=== PATIENT | female | born 1975 | race American Indian/Alaskan Native ===

== ENCOUNTER 2017-04-11 09:08 | Emergency (ER) | payer BC, OTHER ==
--- NOTE | 2017-04-11 09:09 | EDM.PDOC ---
ED HPI GENERAL MEDICAL PROBLEM - General Chief Complaint: Chest Pain Stated Complaint: IN BY AMBULANCE Time Seen by Provider: 04/11/17 09:09 Source of Information: Reports: Patient, EMS, Old Records, RN, RN Notes Reviewed History Limitations: Reports: No Limitations - History of Present Illness INITIAL COMMENTS - FREE TEXT/NARRATIVE: Arrives from work by ambulance with report of onset pain early this morning at the midline lower chest & epigastric region. The pain was moderate, and went away. The pt then went to work, but once she got to work the pain returned and was worse. Pt states she felt like she couldn't breath, then got lightheaded and "blacked out". Her co-workers called 911. EMS arrived and gave Aspirin 81mg x4 tabs chewed, and Nitro. 0.4mg SL x2 without pain relief, then they gave Morphine 2mg IVP. On arrival to the ER pt c/o persistent chest pain (pt points and indicates pain located at epigastric abdomen). She denies radiating pain, current shortness of breath, palpitations, edema, cough, fever, chills, or vomiting. Admits to mild nausea. Pt later reports that she has been under "tremendous stress" at her job and with the holidays. Onset: Today Duration: Recurring Location: Reports: Chest, Abdomen Quality: Reports: Ache Severity: Severe Improves with: Reports: None Worsens with: Reports: None Context: Reports: Other (onset at rest) Associated Symptoms: Reports: No Other Symptoms Treatments SYSTEMS SUPPORT SPECIALIST: Reports: Aspirin, IV/IO, Nitroglycerin, Other Medication(s) ( Morphine) Mid-Sternal Chest Pain Score (Numeric/FACES): 8 - Related Data Allergies Allergy/AdvReac Type Severity Reaction Status Date / Time [facility] Allergy Cannot Verified 04/11/17 09:12 Remember Penicillins Allergy Cannot Verified 04/11/17 09:12 Remember Home Meds: Home Meds . [No Known Home Meds] 04/11/17 [History] Past Medical History - Past Health History Medical/Surgical History: Denies Medical/Surgical History [employer]PER[employer] History: Reports: Other OB/BYN History: Ceserean x4 Psychiatric History: Reports: Anxiety, Panic Attack Hematologic History: Reports: Anemia, Iron Deficiency - Past Surgical History GI Surgical History: Reports: Cholecystectomy Social & Family History - Family History Family Medical History: Noncontributory - Tobacco Use Smoking Status *Q: Former Smoker Years of Tobacco use: 0 Used Tobacco, but Quit: Yes Month Tobacco Last Used: 05/08/11 Second Hand Smoke Exposure: No - Alcohol Use Days Per Week of Alcohol Use: 0 - Recreational Drug Use Recreational Drug Use: No - Living Situation & Occupation Living situation: Reports: , with Family Occupation: Employed ED ROS GENERAL - Review of Systems Review Of Systems: ROS reveals no pertinent complaints other than HPI. ED EXAM, GENERAL - Physical Exam Exam: See Below Exam Limited By: No Limitations General Appearance: WD/WN, No Apparent Distress, Anxious Eye Exam: Bilateral Eye: EOMI, Normal Inspection Ears: Normal External Exam, Hearing Grossly Normal Nose: Normal Inspection, Normal Mucosa, No Blood Throat/Mouth: Normal Inspection, Normal Lips, Normal Teeth, Normal Gums, Normal Oropharynx, Normal Voice, No Airway Compromise Head: Atraumatic, Normocephalic Neck: Normal Inspection, Supple, Non-Tender, Full Range of Motion. No: Lymphadenopathy (L), Lymphadenopathy (R) Respiratory/Chest: No Respiratory Distress, Lungs Clear, Normal Breath Sounds, No Accessory Muscle Use, Chest Non-Tender, Other (hyperventilating) Cardiovascular: Normal Peripheral Pulses, Regular Rate, Rhythm, No Edema, No Gallop, No JVD, No Murmur, No Rub, Tachycardia GI/Abdominal: Soft, No Distention, No Abnormal Bruit, Tender (epigastric region) . No: Guarding, Rigid, Rebound (Female) Exam: Deferred Rectal (Female) Exam: Deferred Back Exam: Normal Inspection Extremities: Normal Inspection, Normal Range of Motion, Non-Tender, Normal Capillary Refill, No Pedal Edema Neurological: Alert, Oriented, CN II-XII Intact, Normal Cognition, Normal Gait, No Motor/Sensory Deficits Psychiatric: Anxious Skin Exam: Warm, Dry, Intact, Normal Color, No Rash EKG INTERPRETATION EKG Date: 04/11/17 Time: 09:15 Rhythm: Other (Sinus tach.) Rate (Beats/Min): 103 [place]: RAD-Right [place] Deviation P-Wave: Present QRS: Normal ST-T: Normal QT: Normal Comparison: No Change EKG Interpretation Comments: No acute ischemic changes. Course - Vital Signs Last Recorded V/S: Last Vital Signs Temp 37.2 C 04/11/17 09:14 Pulse 78 04/11/17 11:39 Resp 16 04/11/17 11:39 BP 109/68 04/11/17 11:39 Pulse Ox 96 04/11/17 11:39 - Orders/Labs/Meds Orders: Active Orders 24 hr Category Date Time Status EKG 12 Lead [EKG Documentation Completion] [RC] STAT Care 04/11/17 09:11 Active Peripheral IV Care [RC] . DIRECTED Care 04/11/17 09:11 Active Chest 1V Frontal [CR] Stat Exams 04/11/17 09:09 Ordered AMYLASE [CHEM] Stat Lab 04/11/17 09:09 Ordered CBC WITH AUTO DIFF [HEME] Stat Lab 04/11/17 09:09 Ordered COMPREHENSIVE METABOLIC PN,CMP [CHEM] Stat Lab 04/11/17 09:09 Ordered D Dimer [D-DIMER QUANTITATIVE] [COAG] Stat Lab 04/11/17 09:09 Ordered DRUG SCREEN URINE BIORAD [URCHEM] Stat Lab 04/11/17 09:09 Uncollected LORazepam [Ativan] Med 04/11/17 11:51 Once 1 mg IVPUSH ONETIME ONE Sodium Chloride 0.9% [Saline Flush] Med 04/11/17 09:10 Active 10 ml FLUSH ASDIRECTED PRN Peripheral IV Insertion Adult [OM.PC] Stat Oth 04/11/17 09:11 Ordered Medication Orders Sodium Chloride (Saline Flush) 10 ml FLUSH ASDIRECTED PRN PRN Reason: Keep Vein Open Last Admin: 04/11/17 09:26 Dose: 10 ml Labs: Laboratory Tests 04/11/17 04/11/17 04/11/17 Range/Units 09:22 09:22 09:22 WBC 5.4 (5.0-10.0) 10^3/uL RBC 4.41 (4.2-5.4) 10^6/uL Hgb 9.1 L (12.0-16.0) g/dL Hct 30.3 L (37.0-47.0) % MCV 68.7 L (80-100) fL MCH 20.6 L (27.0-34.0) pg MCHC 30.0 L (33.0-35.0) g/dL Plt Count 294 (150-450) 10^3/uL Neut % (Auto) 64.3 (42.2-75.2) % Lymph % (Auto) 26.2 (20.5-50.1) % [place] % (Auto) 9.3 H (2-8) % Eos % (Auto) 0.0 L (1.0-3.0) % Baso % (Auto) 0.2 (0.0-1.0) % D-Dimer, Quantitative < 100 (0-400) ng/mL Sodium 139 (135-145) mmol/L Potassium 3.3 L (3.6-5.0) mmol/L Chloride 102 (101-111) mmol/L Carbon Dioxide 22.0 (21.0-31.0) mmol/L Anion Gap 18.3 BUN 11 (7-18) mg/dL Creatinine 0.7 (0.6-1.3) mg/dL Est Cr Clr Drug Dosing 94.21 mL/min Estimated GFR (MDRD) > 60 BUN/Creatinine Ratio 15.71 Glucose 99 (74-105) mg/dL Calcium 8.8 (8.4-10.2) mg/dl Total Bilirubin 0.8 (0.2-1.0) mg/dL AST 21 (10-42) IU/L ALT 17 (10-60) IU/L Alkaline Phosphatase 83 (42-121) IU/L Troponin I < 0.02 (0.00-0.02) ng/ml Total Protein 7.5 (6.7-8.2) g/dl Albumin 3.8 (3.2-5.5) g/dl Globulin 3.7 Albumin/Globulin Ratio 1.03 Amylase 29 (28-100) U/L Lipase 24 (22-51) U/L Urine Color (YELLOW) Urine Appearance (CLEAR) Urine pH (5.0-9.0) Ur Specific [place] (1.005-1.030) Urine Protein (NEGATIVE) Urine Glucose (UA) (NEGATIVE) Urine Ketones (NEGATIVE) Urine Occult Blood (NEGATIVE) Urine Nitrite (NEGATIVE) Urine Bilirubin (NEGATIVE) Urine Urobilinogen (0.2-1.0) mg/dL Ur Leukocyte Esterase (NEGATIVE) Urine RBC /HPF Urine WBC (0-5/HPF) /HPF Ur Epithelial Cells /HPF Amorphous Sediment (0/HPF) /HPF Urine Bacteria (0-FEW/HPF) /HPF Urine Mucus /LPF Urine HCG, Qual Urine Opiates Screen (NEGATIVE) Ur Oxycodone Screen (NEGATIVE) Urine Methadone Screen (NEGATIVE) Ur Barbiturates Screen (NEGATIVE) U Tricyclic Antidepress (NEGATIVE) Ur Phencyclidine Scrn (NEGATIVE) Ur Amphetamine Screen (NEGATIVE) U Methamphetamines Scrn (NEGATIVE) Urine MDMA Screen (NEGATIVE) U Benzodiazepines Scrn (NEGATIVE) Urine Cocaine Screen (NEGATIVE) U Marijuana (THC) Screen (NEGATIVE) 04/11/17 04/11/17 04/11/17 Range/Units 10:30 10:30 10:30 WBC (5.0-10.0) 10^3/uL RBC (4.2-5.4) 10^6/uL Hgb (12.0-16.0) g/dL Hct (37.0-47.0) % MCV (80-100) fL MCH (27.0-34.0) pg MCHC (33.0-35.0) g/dL Plt Count (150-450) 10^3/uL Neut % (Auto) (42.2-75.2) % Lymph % (Auto) (20.5-50.1) % [place] % (Auto) (2-8) % Eos % (Auto) (1.0-3.0) % Baso % (Auto) (0.0-1.0) % D-Dimer, Quantitative (0-400) ng/mL Sodium (135-145) mmol/L Potassium (3.6-5.0) mmol/L Chloride (101-111) mmol/L Carbon Dioxide (21.0-31.0) mmol/L Anion Gap BUN (7-18) mg/dL Creatinine (0.6-1.3) mg/dL Est Cr Clr Drug Dosing mL/min Estimated GFR (MDRD) BUN/Creatinine Ratio Glucose (74-105) mg/dL Calcium (8.4-10.2) mg/dl Total Bilirubin (0.2-1.0) mg/dL AST (10-42) IU/L ALT (10-60) IU/L Alkaline Phosphatase (42-121) IU/L Troponin I (0.00-0.02) ng/ml Total Protein (6.7-8.2) g/dl Albumin (3.2-5.5) g/dl Globulin Albumin/Globulin Ratio Amylase (28-100) U/L Lipase (22-51) U/L Urine Color Yellow (YELLOW) Urine Appearance Clear (CLEAR) Urine pH 5.5 (5.0-9.0) Ur Specific [place] >= 1.030 (1.005-1.030) Urine Protein 100 H (NEGATIVE) Urine Glucose (UA) Negative (NEGATIVE) Urine Ketones 15 H (NEGATIVE) Urine Occult Blood Trace-intact H (NEGATIVE) Urine Nitrite Negative (NEGATIVE) Urine Bilirubin Moderate H (NEGATIVE) Urine Urobilinogen 2.0 H (0.2-1.0) mg/dL Ur Leukocyte Esterase Trace H (NEGATIVE) Urine RBC 0-5 /HPF Urine WBC >100 H (0-5/HPF) /HPF Ur Epithelial Cells Many H /HPF Amorphous Sediment Few (0/HPF) /HPF Urine Bacteria Many H (0-FEW/HPF) /HPF Urine Mucus Many H /LPF Urine HCG, Qual Negative Urine Opiates Screen Positive H (NEGATIVE) Ur Oxycodone Screen Negative (NEGATIVE) Urine Methadone Screen Negative (NEGATIVE) Ur Barbiturates Screen Negative (NEGATIVE) U Tricyclic Antidepress Negative (NEGATIVE) Ur Phencyclidine Scrn Negative (NEGATIVE) Ur Amphetamine Screen Negative (NEGATIVE) U Methamphetamines Scrn Negative (NEGATIVE) Urine MDMA Screen Negative (NEGATIVE) U Benzodiazepines Scrn Negative (NEGATIVE) Urine Cocaine Screen Negative (NEGATIVE) U Marijuana (THC) Screen Negative (NEGATIVE) Meds: Medications Generic Name Dose Route Start Last Admin Trade Name Freq PRN Reason Stop Dose Admin Sodium Chloride 10 ml 04/11/17 09:10 04/11/17 09:26 Saline Flush FLUSH 10 ml ASDIRECTED PRN Administration Keep Vein Open Discontinued Medications Generic Name Dose Route Start Last Admin Trade Name Freq PRN Reason Stop Dose Admin Al Hydroxide/Mg Hydroxide 30 ml 04/11/17 09:15 04/11/17 09:31 Gi Cocktail PO 04/11/17 09:16 30 ml ONETIME ONE Administration Lactated Ringer's 1,000 mls @ 999 mls/hr 04/11/17 09:26 04/11/17 09:37 Ringers, Lactated IV 04/11/17 10:26 999 mls/hr .BOLUS ONE Administration Lorazepam 1 mg 04/11/17 09:15 12/05/17 09:26 Ativan IVPUSH 12/05/17 09:16 1 mg ONETIME ONE Administration Pantoprazole Sodium 40 mg 04/11/17 09:15 04/11/17 09:27 Protonix Iv IVPUSH 04/11/17 09:16 40 mg ONETIME ONE Administration - Radiology Interpretation Free Text/Narrative:: CXR: no acute process, see Rad. report. - Re-Assessments/Exams Free Text/Narrative Re-Assessment/Exam: 04/11/17 11:18 I explained the exam findings, results of all diagnostic tests, chest xray report, working diagnosis, and any potential or additionally considered diagnoses, treatment/disposition plan, self/home care instructions, rational for the diagnosis/treatment plan/disposition plan, anticipated course of illness , and follow up instructions to the pt. The pt acknowledges understanding of the above explanation(s), and of the signs and symptoms which should prompt the return of the pt to the ER should those or any other concerning symptoms develop. Departure - Departure Time of Disposition: 11:19 Disposition: Home, Self-Care 01 Condition: Fair Clinical Impression: Atypical chest pain, Stress, Esophageal spasm, Anxiety as acute reaction to gross stress, Bacterial vaginosis Syncope Qualifiers: Syncope type: unspecified Qualified Code(s): R55 - Syncope and collapse Instructions: Nonspecific Chest Pain, [id number], Esophageal Spasm, Panic Attacks, Gfwy-[id number]-Cnah, Bacterial Vaginosis, [id number]-pr-[id number] Forms: ED Department Discharge Additional Instructions: Rx: Flagyl (Metronidazole) 500mg Rx: Omeprazole 20mg Rx: Clonazepam 1mg *Do not drive while under the influence of this medication. Rest and avoid stress. Avoid spicy food, high fat and fried foods, alcohol, and caffeine. Follow up with your primary doctor this week for recheck. Discuss your stress and anxiety with your doctor also. - My Orders Last 24 Hours: My Active Orders 04/11/17 09:09 Chest 1V Frontal [CR] Stat AMYLASE [CHEM] Stat CBC WITH AUTO DIFF [HEME] Stat COMPREHENSIVE METABOLIC PN,CMP [CHEM] Stat D Dimer [D-DIMER QUANTITATIVE] [COAG] Stat DRUG SCREEN URINE BIORAD [URCHEM] Stat 04/11/17 09:10 Sodium Chloride 0.9% [Saline Flush] 10 ml FLUSH ASDIRECTED PRN 04/11/17 09:11 EKG 12 Lead [EKG Documentation Completion] [RC] STAT Peripheral IV Care [RC] . DIRECTED Peripheral IV Insertion Adult [OM.PC] Stat 04/11/17 11:51 LORazepam [Ativan] 1 mg IVPUSH ONETIME ONE - Assessment/Plan Last 24 Hours: My Active Orders 04/11/17 09:09 Chest 1V Frontal [CR] Stat AMYLASE [CHEM] Stat CBC WITH AUTO DIFF [HEME] Stat COMPREHENSIVE METABOLIC PN,CMP [CHEM] Stat D Dimer [D-DIMER QUANTITATIVE] [COAG] Stat DRUG SCREEN URINE BIORAD [URCHEM] Stat 04/11/17 09:10 Sodium Chloride 0.9% [Saline Flush] 10 ml FLUSH ASDIRECTED PRN 04/11/17 09:11 EKG 12 Lead [EKG Documentation Completion] [RC] STAT Peripheral IV Care [RC] . DIRECTED Peripheral IV Insertion Adult [OM.PC] Stat 04/11/17 11:51 LORazepam [Ativan] 1 mg IVPUSH ONETIME ONE
[2017-04-11] MEDS ORDERED: Sodium Chloride 0.9% 10 ML Syringe FLUSH PRN (09:10)
[2017-04-11] MEDS ORDERED: LORazepam 2 MG/ML Syringe IVPUSH ONE ×2 (09:15→11:51)
[2017-04-11] MEDS ORDERED: Pantoprazole 40 MG Vial IVPUSH ONE (09:15)
[2017-04-11] MEDS ORDERED: GI Cocktail Oral Solution 30 ML PO ONE (09:15)
[2017-04-11] MEDS ORDERED: Lactated Ringers 1,000 ML IV ONE (09:26)
[2017-04-11 09:49] LABS: CHLORIDE,CL 102 mmol/L (101-111); SODIUM,NA 139 mmol/L (135-145)
--- NOTE | 2017-04-11 10:03 | CR ---
Clinical history: 41-year-old female chest pain. Interpretation: Negative exam. Upright AP portable chest film with external therapy director leads is unremarkable. Normal cardiac silhouette. No new cephalization of vascular flow, signs of alveolar edema or dependen t pleural effusion when compared to 08 Sep 2015 exam. No new lung mass, hilar lymphadenopathy or focal lobar pneumonia. No atelectasis/collapse. No pneumothorax.
[2017-04-11 11:40] VITALS: BP 109/68
--- NOTE | 2017-04-17 07:05 | EKG ---
04/11/2017- KRISTINA MACEDO - [place] 12-lead EKG shows normal sinus rhythm with sinus tachycardia. Heart rate of 103, p.r.n. interval of 156 with mild right axis deviation. No significant ST elevation or ST depression noted on this 12-lead EKG. [facility] /[id number]
== END 2017-04-11 12:04 | disposition home or self-care (01) ==
LOC: DL.ED 09:08
DX: K22.4 Dyskinesia of esophagus (principal); R55 Syncope and collapse; F41.1 Generalized anxiety disorder; F43.9 Reaction to severe stress, unspecified; N76.0 Acute vaginitis; Z88.1 Allergy status to other antibiotic agents; Z88.0 Allergy status to penicillin; Z87.891 Personal history of nicotine dependence
CPT/HCPCS: 36415; 71010; 80053; 80305; 81001; 81025; 82150; 83690; 84484; 85025; 85379; 93005; 96361; 96374; 96375; 99285; A9270; C9113; J2060; J7050; J7120

== ENCOUNTER 2017-04-11 14:32 | Observation (INO) | payer OTHER ==
--- NOTE | 2017-04-11 14:38 | EDM.PDOC ---
ED HPI GENERAL MEDICAL PROBLEM - General Chief Complaint: Gastrointestinal Problem Stated Complaint: VOMITTING Time Seen by Provider: 04/11/17 14:38 Source of Information: Reports: Patient, Family, Old Records, RN, RN Notes Reviewed History Limitations: Reports: No Limitations - History of Present Illness INITIAL COMMENTS - FREE TEXT/NARRATIVE: Arrives from home by POV with c/o vomiting and epigastric pain. Pt was seen here this morning for chest and epigastric pain and a syncopal episode, but no N /V, and had a negative cardiac evaluation, and no significant lab abnormalities. She did admit to being under a lot of stress recently. She denies fever, chills, diarrhea, constipation, or urinary symptoms. Onset: Today Location: Reports: Abdomen Quality: Reports: Ache Severity: Severe Improves with: Reports: None Worsens with: Reports: None Associated Symptoms: Reports: No Other Symptoms Epigastric Pain Score (Numeric/FACES): 3 - Related Data Allergies Allergy/AdvReac Type Severity Reaction Status Date / Time cefaclor [From Ceclor] Allergy Cannot Verified 04/11/17 14:58 Remember Penicillins Allergy Cannot Verified 04/11/17 14:58 Remember Home Meds: Home Meds . 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/BYN History: Ceserean x4 Psychiatric History: Reports: Anxiety, Panic Attack Hematologic History: Reports: Anemia, Iron Deficiency - Past Surgical History GI Surgical History: Reports: Cholecystectomy Social & Family History - Family History Family Medical History: Noncontributory - Tobacco Use Smoking Status *Q: Former Smoker Years of Tobacco use: 0 Used Tobacco, but Quit: Yes Month Tobacco Last Used: 05/08/11 Second Hand Smoke Exposure: No - Caffeine Use Caffeine Use: Reports: None - Alcohol Use Days Per Week of Alcohol Use: 0 - Recreational Drug Use Recreational Drug Use: No - Living Situation & Occupation Living situation: Reports: , with Family Occupation: Employed ED ROS GENERAL - Review of Systems Review Of Systems: ROS reveals no pertinent complaints other than HPI. ED EXAM, GI/ABD - Physical Exam Exam: See Below Exam Limited By: No Limitations General Appearance: Alert, WD/WN, No Apparent Distress, Anxious, Other (drowsy) Eyes: Bilateral: Normal Appearance Nose: Normal Inspection Throat/Mouth: Normal Inspection, Normal Lips, Normal Teeth, Normal Gums, Normal Oropharynx, Normal Voice, No Airway Compromise Head: Atraumatic, Normocephalic Neck: Normal Inspection Respiratory/Chest: No Respiratory Distress, Lungs Clear, Normal Breath Sounds, No Accessory Muscle Use, Chest Non-Tender Cardiovascular: Regular Rate, Rhythm, No Edema GI/Abdominal Exam: Soft, No Distention, No Abnormal Bruit, Tender (epigastric region, and less so at the RUQ), Other (slightly hyperactive bowel sounds). No : Guarding, Rigid, Rebound (Female) Exam: Deferred Rectal (Female) Exam: Deferred Back Exam: Normal Inspection Extremities: Normal Inspection Neurological: Alert, No Motor/Sensory Deficits, Other (drowsy (had ativan earlier)) Psychiatric: Anxious, Flat Affect Skin Exam: Warm, Dry, Intact, Normal Color, No Rash Course - Vital Signs Last Recorded V/S: Last Vital Signs Temp 36.6 C 04/11/17 14:59 Pulse 56 L 04/11/17 16:17 Resp 16 04/11/17 16:17 BP 91/54 L 04/11/17 16:17 Pulse Ox 95 04/11/17 16:17 - Orders/Labs/Meds Orders: Active Orders 24 hr Category Date Time Status Peripheral IV Care [RC] . DIRECTED Care 04/11/17 15:03 Active Potassium Chloride [KCl 10 MEQ in Water 100 ML] 10 meq Med 04/11/17 16:07 Active Premix Bag 1 bag IV ONETIME Sodium Chloride 0.9% [Saline Flush] Med 04/11/17 15:02 Active 10 ml FLUSH ASDIRECTED PRN Peripheral IV Insertion Adult [OM.PC] Stat Oth 04/11/17 15:02 Ordered Medication Orders Potassium Chloride 10 meq/ (Premix) 100 mls @ 100 mls/hr IV ONETIME ONE Stop: 04/11/17 17:06 Last Admin: 04/11/17 16:18 Dose: 100 mls/hr Sodium Chloride (Saline Flush) 10 ml FLUSH ASDIRECTED PRN PRN Reason: Keep Vein Open Last Admin: 04/11/17 15:21 Dose: 10 ml Labs: Laboratory Tests 04/11/17 04/11/17 Range/Units 15:20 15:20 WBC 6.1 (5.0-10.0) 10^3/uL RBC 4.11 L (4.2-5.4) 10^6/uL Hgb 8.5 L (12.0-16.0) g/dL Hct 28.9 L (37.0-47.0) % MCV 70.3 L (80-100) fL MCH 20.7 L (27.0-34.0) pg MCHC 29.4 L (33.0-35.0) g/dL Plt Count 187 D (150-450) 10^3/uL Neut % (Auto) 75.0 (42.2-75.2) % Lymph % (Auto) 15.9 L (20.5-50.1) % [place] % (Auto) 8.9 H (2-8) % Eos % (Auto) 0.0 L (1.0-3.0) % Baso % (Auto) 0.2 (0.0-1.0) % Sodium 141 (135-145) mmol/L Potassium 3.0 L (3.6-5.0) mmol/L Chloride 106 (101-111) mmol/L Carbon Dioxide 23.0 (21.0-31.0) mmol/L Anion Gap 15.0 BUN 11 (7-18) mg/dL Creatinine 0.6 (0.6-1.3) mg/dL Est Cr Clr Drug Dosing 105.47 mL/min Estimated GFR (MDRD) > 60 BUN/Creatinine Ratio 18.33 Glucose 101 (74-105) mg/dL Calcium 8.4 (8.4-10.2) mg/dl Total Bilirubin 0.6 (0.2-1.0) mg/dL AST 21 (10-42) IU/L ALT 17 (10-60) IU/L Alkaline Phosphatase 76 (42-121) IU/L Total Protein 6.6 L (6.7-8.2) g/dl Albumin 3.5 (3.2-5.5) g/dl Globulin 3.1 Albumin/Globulin Ratio 1.13 Amylase 26 L (28-100) U/L Lipase 23 (22-51) U/L Meds: Medications Generic Name Dose Route Start Last Admin Trade Name Freq PRN Reason Stop Dose Admin Potassium Chloride 10 meq/ 100 mls @ 100 mls/hr 04/11/17 16:07 04/11/17 16:18 Premix IV 04/11/17 17:06 100 mls/hr ONETIME ONE Administration Sodium Chloride 10 ml 04/11/17 15:02 04/11/17 15:21 Saline Flush FLUSH 10 ml ASDIRECTED PRN Administration Keep Vein Open Discontinued Medications Generic Name Dose Route Start Last Admin Trade Name Freq PRN Reason Stop Dose Admin Lactated Ringer's 1,000 mls @ 999 mls/hr 04/11/17 15:03 04/11/17 15:21 Ringers, Lactated IV 04/11/17 16:03 999 mls/hr .BOLUS ONE Administration Lidocaine HCl 1 ml 04/11/17 16:08 04/11/17 16:19 Xylocaine-Mpf 1% INJECT 04/11/17 16:09 1 ml ONETIME ONE Administration Ondansetron HCl 4 mg 04/11/17 15:03 04/11/17 15:21 Zofran IV 04/11/17 15:04 4 mg ONETIME ONE Administration Departure - Departure Time of Disposition: 16:38 (admit to Dr. Peck) Disposition: Refer to Observation Condition: Fair Clinical Impression: Vomiting, Epigastric abdominal pain, Anxiety as acute reaction to gross stress , Hypokalemia, gastrointestinal losses, Chronic anemia Syncope Qualifiers: Syncope type: unspecified Qualified Code(s): R55 - Syncope and collapse - Discharge Information Forms: ED Department Discharge - My Orders Last 24 Hours: My Active Orders 04/11/17 15:02 Sodium Chloride 0.9% [Saline Flush] 10 ml FLUSH ASDIRECTED PRN Peripheral IV Insertion Adult [OM.PC] Stat 04/11/17 15:03 Peripheral IV Care [RC] . DIRECTED 04/11/17 16:07 Potassium Chloride [KCl 10 MEQ in Water 100 ML] 10 meq Premix Bag 1 bag IV ONETIME - Assessment/Plan Last 24 Hours: My Active Orders 04/11/17 15:02 Sodium Chloride 0.9% [Saline Flush] 10 ml FLUSH ASDIRECTED PRN Peripheral IV Insertion Adult [OM.PC] Stat 04/11/17 15:03 Peripheral IV Care [RC] . DIRECTED 04/11/17 16:07 Potassium Chloride [KCl 10 MEQ in Water 100 ML] 10 meq Premix Bag 1 bag IV ONETIME
[2017-04-11] MEDS ORDERED: Sodium Chloride 0.9% 10 ML Syringe FLUSH PRN (15:02)
[2017-04-11] MEDS ORDERED: Ondansetron 4 MG/2 ML SDV IV ONE (15:03)
[2017-04-11] MEDS ORDERED: Lactated Ringers 1,000 ML IV ONE (15:03)
[2017-04-11 16:00] LABS: CHLORIDE,CL 106 mmol/L (101-111); SODIUM,NA 141 mmol/L (135-145)
[2017-04-11] MEDS ORDERED: Potassium Chloride 10 MEQ in Premix Bag 1 BAG IV ONE (16:07)
[2017-04-11] MEDS ORDERED: Lidocaine 1% 30 ML SDV INJECT ONE (16:08)
[2017-04-11] MEDS ORDERED: Calcium Carbonate 500 MG Tab.Chew PO PRN (18:11)
[2017-04-11] MEDS ORDERED: Temazepam 15 MG Cap PO PRN (18:13)
[2017-04-11] MEDS ORDERED: Acetaminophen 325 MG Tab PO PRN (18:13)
[2017-04-11] MEDS ORDERED: Ondansetron 4 MG Tab.DIS PO PRN (18:13)
--- NOTE | 2017-04-11 18:25 | PCM.HP ---
H&P History of Present Illness - General Date of Service: 04/11/17 Admit Problem/Dx: Admission Diagnosis/Problem Admission Diagnosis/Problem Chest pain Source of Information: Patient - History of Present Illness Initial Comments - Free Text/Narative: The patient is a 41-year-old lady with a history of anxiety. History of episodes of associated reflux disease with heartburn and has to take Tums 2-3 times a week. She is under a lot of stress at work and at home currently. This morning the patient felt anxiety followed by chest heaviness. Subsequently she was noted to have a syncopal episode that lasted about 1 minute. 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 She did not respond to talking to her for about a minute but she kept on breathing. She was brought in today emergency room where cardiac evaluation was done and the patient was discharged home. After discharge she felt nauseous and was vomiting and came back to the emergency room again. She feels that she cannot remember part of the day. She is not nauseous now. She has no chest pain. Epigastric Pain Score (Numeric/FACES): 3 - Related Data Allergies/Adverse Reactions: Allergies Allergy/AdvReac Type Severity Reaction Status Date / Time cefaclor [From [facility]] Allergy Cannot Verified 04/11/17 14:58 Remember Penicillins Allergy Cannot Verified 04/11/17 14:58 Remember Home Medications: Home Meds . [No Known Home Meds] 04/11/17 [History] Past Medical History - Past Health History Medical/Surgical History: Denies Medical/Surgical History Genitourinary History: Reports: None [employer]ER History: Reports: Other OB/BYN History: Ceserean x4 Psychiatric History: Reports: Anxiety, Panic Attack Hematologic History: Reports: Anemia, Iron Deficiency - Past Surgical History GI Surgical History: Reports: Cholecystectomy Social & Family History - Family History Family Medical History: Noncontributory - Tobacco Use Smoking Status *Q: Former Smoker Years of Tobacco use: 0 Used Tobacco, but Quit: Yes Month Tobacco Last Used: 05/08/11 Second Hand Smoke Exposure: No - Caffeine Use Caffeine Use: Reports: None - Alcohol Use Days Per Week of Alcohol Use: 0 - Recreational Drug Use Recreational Drug Use: No - Living Situation & Occupation Living situation: Reports: , with Family Occupation: Employed H&P Review of Systems - Review of Systems: Review Of Systems: See Below General: Reports: Malaise. Denies: Fever Pulmonary: Denies: Shortness of Breath Cardiovascular: Reports: Chest Pain, Syncope. Denies: Edema Genitourinary: Denies: Dysuria Psychiatric: Reports: Anxiety Neurological: Reports: Syncope. Denies: Seizure Exam - Exam Exam: See Below - Vital Signs Vital Signs: Last Vital Signs Temp 37.0 C 04/11/17 17:22 Pulse 77 04/11/17 17:22 Resp 20 04/11/17 17:22 BP 108/65 04/11/17 17:22 Pulse Ox 100 04/11/17 17:22 Weight: 78.199 kg - Exam General: Alert, Oriented Neck: Supple, Trachea Midline Lungs: Clear to Auscultation, Normal Respiratory Effort Cardiovascular: Regular Rate, Regular Rhythm, Other (Reproducible sternal chest pain with pressure) GI/Abdominal Exam: Normal Bowel Sounds, Soft, Non-Tender. No: Distended Extremities: No Pedal Edema Neuro Extensive - Mental Status: Alert, Oriented x3, Normal Mood/Affect - Patient Data Result Diagrams: 04/11/17 15:20 04/11/17 15:20 *Q Meaningful Use (ADM) - VTE *Q VTE Criteria *Q: - Stroke *Q Stroke Criteria *Q: - AMI *Q AMI Criteria *Q: - Problem List (1) Anxiety as acute reaction to gross stress SNOMED Code(s): 00317060 ICD Code: F41.1 - GENERALIZED ANXIETY DISORDER; F43.0 - ACUTE STRESS REACTION Status: Acute Current Visit: Yes (2) Chronic anemia SNOMED Code(s): 057482402 ICD Code: D64.9 - ANEMIA, UNSPECIFIED Status: Acute Current Visit: Yes (3) Syncope SNOMED Code(s): 890035962 ICD Code: R55 - SYNCOPE AND COLLAPSE Status: Acute Current Visit: Yes Qualifiers: Syncope type: unspecified Qualified Code(s): R55 - Syncope and collapse (4) Atypical chest pain SNOMED Code(s): 270816752 ICD Code: R07.89 - OTHER CHEST PAIN Status: Acute Current Visit: No Problem List Initiated/Reviewed/Updated: Yes Orders Last 24hrs: Active Orders 24 hr Category Date Time Status Patient Status [ADT] Routine ADT 04/11/17 18:14 Ordered Antiembolic Devices [RC] PER UNIT ROUTINE Care 04/11/17 18:16 Ordered Oxygen Therapy [RC] PRN Care 04/11/17 18:14 Ordered Telemetry Monitoring [Cardiac Monitoring] [RC] . Care 04/11/17 18:12 Ordered DIRECTED Up With Assistance [RC] ASDIRECTED Care 04/11/17 18:13 Ordered VTE/DVT Education [RC] PER UNIT ROUTINE Care 04/11/17 18:14 Ordered Vital Signs [RC] Q4H Care 04/11/17 18:14 Ordered Regular Diet [DIET] Diet 04/11/17 Breakfast Ordered BASIC METABOLIC PANEL,BMP [CHEM] AM Lab 04/12/17 05:15 Ordered CBC WITH AUTO DIFF [HEME] AM Lab 04/12/17 05:15 Ordered TROPONIN I [CHEM] AM Lab 04/12/17 05:11 Ordered Acetaminophen [Tylenol] Med 04/11/17 18:13 Ordered 650 mg PO Q4H PRN Calcium Carbonate [Tums] Med 04/11/17 18:11 Ordered 500 mg PO Q2H PRN Heparin Sodium Med 04/11/17 22:00 Ordered 5,000 units SUBCUT Q8HR LORazepam [Ativan] Med 04/11/17 18:13 Ordered 1 mg PO Q6H PRN Ondansetron [Zofran ODT] Med 04/11/17 18:13 Ordered 4 mg PO Q6H PRN Ondansetron [Zofran] Med 04/11/17 18:13 Ordered 4 mg IVPUSH Q6H PRN Pantoprazole [ProTONIX] Med 04/11/17 21:00 Ordered 40 mg PO BEDTIME Potassium Chloride [Klor-Con 10] Med 04/11/17 19:00 Once 40 meq PO ONETIME ONE Temazepam [Restoril] Med 04/11/17 18:13 Ordered 15 mg PO BEDTIME PRN Antiembolic Hose [OM.PC] Per Unit Routine Oth 04/11/17 18:15 Ordered Resuscitation Status Routine Resus Stat 04/11/17 18:13 Ordered Medication Orders Acetaminophen (Tylenol) 650 mg PO Q4H PRN PRN Reason: Pain (Mild 1-3)/fever Calcium Carbonate/Glycine (Tums) 500 mg PO Q2H PRN PRN Reason: Heartburn Heparin Sodium (Porcine) (Heparin Sodium) 5,000 units SUBCUT Q8HR JUDI Lorazepam (Ativan) 1 mg PO Q6H PRN PRN Reason: Anxiety Ondansetron HCl (Zofran Odt) 4 mg PO Q6H PRN PRN Reason: nausea, able to take PO Ondansetron HCl (Zofran) 4 mg IVPUSH Q6H PRN PRN Reason: Nausea/Vomiting Pantoprazole Sodium (Protonix) 40 mg PO BEDTIME JUDI Potassium Chloride (Klor-Con 10) 40 meq PO ONETIME ONE Stop: 04/11/17 19:01 Sodium Chloride (Saline Flush) 10 ml FLUSH ASDIRECTED PRN PRN Reason: Keep Vein Open Last Admin: 04/11/17 15:21 Dose: 10 ml Temazepam (Restoril) 15 mg PO BEDTIME PRN PRN Reason: Sleep Assessment/Plan Comment:: The patient is a 41-year-old with a history of anemia. She has no significant cardiac risk factors but has significant stress lately. She presented with chest discomfort and syncopal episode. Chest discomfort and syncope likely due to anxiety, hyperventilation. Monitor the patient on telemetry, repeat troponin in the morning There might be a reflux component. Started the patient on Protonix Use Ativan as needed for anxiety Hypokalemia We'll replace that and recheck in the morning Anemia Will need outpatient follow-up
[2017-04-11] MEDS ORDERED: Potassium Chloride 10 MEQ Tab.ER PO ONE (19:00)
[2017-04-11] MEDS ORDERED: Pantoprazole 40 MG Tab.CR PO SCH (21:00)
[2017-04-11] MEDS: Heparin Sodium 5,000 Units/ML Vial SUBCUT SCH (21:46)
[2017-04-11] MEDS: LORazepam 1 MG Tab PO PRN (21:57)
[2017-04-12] MEDS: Heparin Sodium 5,000 Units/ML Vial SUBCUT SCH ×3 (06:44→21:33)
[2017-04-12 06:48] LABS: CHLORIDE,CL 109 mmol/L (101-111); SODIUM,NA 140 mmol/L (135-145)
[2017-04-12] MEDS: LORazepam 1 MG Tab PO PRN (07:26)
[2017-04-12] MEDS ORDERED: Barium Sulfate w/v 1.3% Oral Susp 450 ML Bottle PO ONE (10:16)
[2017-04-12] MEDS ORDERED: Iopamidol 755 Mg/ML 100 ML Bottle IVPUSH ONE (10:17)
[2017-04-12] MEDS: Acetaminophen/HYDROcodone 325-5 MG Tab PO PRN ×2 (10:34→21:32)
[2017-04-12] MEDS ORDERED: LORazepam 2 MG/ML Syringe IVPUSH ONE (11:30)
[2017-04-12] MEDS ORDERED: Barium Sulfate w/v 2.1% Oral Susp 450 ML Bottle PO ONE (11:56)
[2017-04-12] MEDS: Ondansetron 4 MG/2 ML SDV IVPUSH PRN ×2 (12:05→17:54)
--- NOTE | 2017-04-12 12:05 | PCM.PN ---
- General Info Date of Service: 04/12/17 Admission Dx/Problem (Free Text): Admission Diagnosis/Problem Admission Diagnosis/Problem Chest pain Subjective Update: The patient did well overnight. But this morning again feeling chest heaviness. It does change with different positions. Associated with anxiety. She is feeling short of breath. Functional Status: Denies: Pain Controlled - Review of Systems General: Denies: Fever, Weakness Pulmonary: Reports: Shortness of Breath, Pleuritic Chest Pain. Denies: Cough Cardiovascular: Reports: Chest Pain. Denies: Edema Gastrointestinal: Reports: Abdominal Pain (Upper abdomen) Neurological: Denies: Confusion Psychiatric: Reports: Anxiety. Denies: Depression - Patient Data Vitals - Most Recent: Last Vital Signs Temp 37.0 C 04/12/17 11:00 Pulse 72 04/12/17 11:00 Resp 22 H 04/12/17 11:00 BP 117/70 04/12/17 11:00 Pulse Ox 100 04/12/17 11:00 Weight - Most Recent: 78.199 kg I&O - Last 24 Hours: Intake & Output 04/11/17 04/12/17 04/12/17 22:59 06:59 14:59 Intake Total 100 Output Total 700 Balance -600 Lab Results Last 24 Hours: Laboratory Results - last 24 hr 04/12/17 04/12/17 Range/Units 05:55 05:55 WBC 4.0 L (5.0-10.0) 10^3/uL RBC 4.07 L (4.2-5.4) 10^6/uL Hgb 8.2 L (12.0-16.0) g/dL Hct 29.0 L (37.0-47.0) % MCV 71.3 L (80-100) fL MCH 20.1 L (27.0-34.0) pg MCHC 28.3 L (33.0-35.0) g/dL Plt Count 242 (150-450) 10^3/uL Neut % (Auto) 50.5 (42.2-75.2) % Lymph % (Auto) 40.1 (20.5-50.1) % [place] % (Auto) 9.2 H (2-8) % Eos % (Auto) 0.0 L (1.0-3.0) % Baso % (Auto) 0.2 (0.0-1.0) % Sodium 140 (135-145) mmol/L Potassium 3.9 (3.6-5.0) mmol/L Chloride 109 (101-111) mmol/L Carbon Dioxide 28.0 (21.0-31.0) mmol/L Anion Gap 6.9 BUN 7 (7-18) mg/dL Creatinine 0.6 (0.6-1.3) mg/dL Est Cr Clr Drug Dosing 109.91 mL/min Estimated GFR (MDRD) > 60 Glucose 84 (74-105) mg/dL Calcium 8.7 (8.4-10.2) mg/dl Troponin I < 0.02 (0.00-0.02) ng/ml Med Orders - Current: Current Medications Acetaminophen (Tylenol) 650 mg PO Q4H PRN PRN Reason: Pain (Mild 1-3)/fever Last Admin: 04/12/17 07:26 Dose: 650 mg Hydrocodone Bitart/Acetaminophen (Industry 325-5 Mg) 1 tab PO Q4H PRN PRN Reason: Abdominal Pain Last Admin: 04/12/17 10:34 Dose: 1 tab Calcium Carbonate/Glycine (Tums) 500 mg PO Q2H PRN PRN Reason: Heartburn Heparin Sodium (Porcine) (Heparin Sodium) 5,000 units SUBCUT Q8HR JUDI Last Admin: 04/12/17 06:44 Dose: 5,000 units Lorazepam (Ativan) 1 mg PO Q6H PRN PRN Reason: Anxiety Last Admin: 04/12/17 07:26 Dose: 1 mg Ondansetron HCl (Zofran Odt) 4 mg PO Q6H PRN PRN Reason: nausea, able to take PO Ondansetron HCl (Zofran) 4 mg IVPUSH Q6H PRN PRN Reason: Nausea/Vomiting Pantoprazole Sodium (Protonix) 40 mg PO BIDAC JUDI Sodium Chloride (Saline Flush) 10 ml FLUSH ASDIRECTED PRN PRN Reason: Keep Vein Open Last Admin: 04/11/17 15:21 Dose: 10 ml Temazepam (Restoril) 15 mg PO BEDTIME PRN PRN Reason: Sleep Discontinued Medications Barium Sulfate (Readi-Cat) 450 ml PO ONETIME ONE Stop: 04/12/17 10:17 Barium Sulfate (Readi-Cat 2) 450 ml PO ONETIME ONE Stop: 04/12/17 11:57 Lactated Ringer's (Ringers, Lactated) 1,000 mls @ 999 mls/hr IV .BOLUS ONE Stop: 04/11/17 16:03 Last Admin: 04/11/17 15:21 Dose: 999 mls/hr Potassium Chloride 10 meq/ (Premix) 100 mls @ 100 mls/hr IV ONETIME ONE Stop: 04/11/17 17:06 Last Admin: 04/11/17 16:18 Dose: 100 mls/hr Iopamidol (Isovue-370 (76%)) 100 ml IVPUSH ONETIME ONE Stop: 04/12/17 10:18 Last Admin: 04/12/17 11:55 Dose: 75 ml Lidocaine HCl (Xylocaine-Mpf 1%) 1 ml INJECT ONETIME ONE Stop: 04/11/17 16:09 Last Admin: 04/11/17 16:19 Dose: 1 ml Lorazepam (Ativan) 1 mg IVPUSH ONETIME ONE Stop: 04/12/17 11:31 Last Admin: 04/12/17 11:44 Dose: 1 mg Ondansetron HCl (Zofran) 4 mg IV ONETIME ONE Stop: 04/11/17 15:04 Last Admin: 04/11/17 15:21 Dose: 4 mg Pantoprazole Sodium (Protonix) 40 mg PO BEDTIME JUDI Last Admin: 04/11/17 21:46 Dose: 40 mg Potassium Chloride (Klor-Con 10) 40 meq PO ONETIME ONE Stop: 04/11/17 19:01 Last Admin: 04/11/17 18:42 Dose: 40 meq - Exam Quality Assessment: Supplemental Oxygen General: Alert, Oriented Neck: Supple Lungs: Clear to Auscultation, Normal Respiratory Effort Cardiovascular: Regular Rate, Regular Rhythm GI/Abdominal Exam: Normal Bowel Sounds, Soft, Non-Tender, Other (At the side of the prior laparoscopic cholecystectomy incision there is small area of subcutaneous hardened tissue possible scar or small hernia) Extremities: No: Pedal Edema Skin: Warm, Dry Psy/Mental Status: Alert, Normal Affect, Normal Mood - Problem List & Annotations (1) Anxiety as acute reaction to gross stress SNOMED Code(s): 00884241 Code(s): F41.1 - GENERALIZED ANXIETY DISORDER; F43.0 - ACUTE STRESS REACTION Status: Acute Current Visit: Yes (2) Chronic anemia SNOMED Code(s): 670547478 Code(s): D64.9 - ANEMIA, UNSPECIFIED Status: Acute Current Visit: Yes (3) Syncope SNOMED Code(s): 090942224 Code(s): R55 - SYNCOPE AND COLLAPSE Status: Acute Current Visit: Yes Qualifiers: Syncope type: unspecified Qualified Code(s): R55 - Syncope and collapse (4) Atypical chest pain SNOMED Code(s): 969904924 Code(s): R07.89 - OTHER CHEST PAIN Status: Acute Current Visit: No - Problem List Review Problem List Initiated/Reviewed/Updated: Yes - My Orders Last 24 Hours: My Active Orders 04/12/17 09:48 Chest w Cont [CT] Routine Acetaminophen/HYDROcodone [Industry 325-5 MG] 1 tab PO Q4H PRN 04/12/17 11:53 IRON PNL (FE, TIBC, LOPEZ, %SAT) [REF] Routine 04/12/17 11:54 FOLATE [REF] Routine VITAMIN B12 [REF] Routine 04/12/17 12:00 Pantoprazole [ProTONIX] 40 mg PO BIDAC - Plan Plan:: The patient is a 41-year-old with a history of anemia. She has no significant cardiac risk factors but has significant stress lately. She presented with chest discomfort and syncopal episode. Chest discomfort and syncope likely due to anxiety, hyperventilation. telemetry showed normal arrhythmia Troponin is normal the chest and upper abdominal pain and heaviness might relate to gastric ulcer and acid reflux The patient is noted to have anemia Will check iron, B12, folate, occult blood from stool Started the patient on Protonix Might be an anxiety component Use Ativan as needed for anxiety The patient has a history of cholecystectomy and liver function tests are normal Much less likely pulmonary embolism, aortic dissection Possible hiatal hernia, Hernia at the incision site of the previous laparoscopic cholecystectomy We will obtain CT of the chest and abdomen for further evaluation Hypokalemia We'll continue to replace
--- NOTE | 2017-04-12 12:56 | CT ---
CLINICAL HISTORY: 41-year-old hospitalized 172 pound female ex-smoker with lower chest/upper abdomina l pain that "radiates to the back, on the right". Rule out aortic aneurysm/dissection or other abnorm ality this patient who has had cholecystectomy. SCAN TECHNIQUE: Volume acquisition of data from the chest and abdomen obtained after oral ingestion 1 cup of barium and during/after the intravenous administration 75 cc nonionic Isovue contrast (4 cc/s ec via injector) while the patient was lying supine on the Siemens multislice CT scanner [place], [place]. All data archived in the PACS system for storage, reformatting a nd study. INTERPRETATION: 1. Normal caliber and course of the thoracic and abdominal aorta. Specifically, no sign of aneurysm o r dissection. 2. *Surgical clips gallbladder fossa and focal herniation peritoneal fat RUQ adjacent to surgical cli p, anterior abdominal wall. No bowel incarceration or current signs of mechanical bowel obstruction. No free subdiaphragmatic air. 3. Normal cardiac silhouette. No pericardial effusion. No cephalization of vascular flow, signs of al veolar edema or dependent effusion. Platelike atelectasis left lung base. 4. No lung mass or hilar/mediastinal lymphadenopathy. No lobar pneumonia. 5. Liver, stomach, spleen, pancreas, adrenal glands and kidneys appear normal. 6. Thoracolumbar spine unremarkable. CONCLUSION: Small postsurgical (cholecystectomy) ventral wall hernia right upper quadrant without inc arcerated bowel. CT scan chest and abdomen otherwise unremarkable. No sign of aortic aneurysm or dissection. No lobar pneumonia.
[2017-04-12] MEDS: Pantoprazole 40 MG Tab.CR PO SCH ×2 (13:10→17:49)
[2017-04-13] MEDS: Pantoprazole 40 MG Tab.CR PO SCH (05:40)
[2017-04-13] MEDS: Heparin Sodium 5,000 Units/ML Vial SUBCUT SCH (05:40)
[2017-04-13] MEDS: Acetaminophen/HYDROcodone 325-5 MG Tab PO PRN (07:16)
[2017-04-13] MEDS: Ondansetron 4 MG/2 ML SDV IVPUSH PRN (08:09)
[2017-04-13] MEDS ORDERED: Cyanocobalamin (Vitamin B12) 100 MCG Tab PO SCH (09:00)
[2017-04-13 12:02] VITALS: BP 111/53
[2017-04-13] MEDS ORDERED: Ferrous Sulfate 325 MG Tab PO SCH (18:00)
--- NOTE | 2017-04-13 20:25 | DISCH ---
ADMITTING DIAGNOSES: 1. Chest pain to rule out acute coronary syndrome. 2. Possible atypical chest pain. 3. Hypokalemia. 4. Anemia. 5. Possible syncopal episode. DISCHARGE DIAGNOSES: 1. Chest pain with negative cardiac enzymes and normal 12-lead EKG. 2. Possible gastroesophageal reflux disease. 3. Periods of unconsciousness to rule out seizure activity needing higher level of care and Neurology consultation. 4. Anemia with iron deficiency and B12 deficiency. 5. Hypokalemia. HISTORY OF PRESENT ILLNESS: Ms. Ariel Blue is a 41-year-old female with medical history significant for anemia and possible gastroesophageal reflux disease, was admitted to the hospital with complaints of having chest pain and anxiety and to rule out acute coronary syndrome. Her serial cardiac enzymes remained negative. Her 12-lead EKG was benign without any ST elevation or ST depression, but the patient noted to have episodes of unconsciousness where she was upstairs and does not remember the episode very well, so unsure if the patient has any underlying seizures or underlying stress resulting in anxiety. In any case, she would benefit from getting the EEG and also a neurology consultation to rule out possible seizures. The patient was also noted to have hypokalemia on this admission, requiring potassium chloride supplement, which has improved at the time of discharge. She was also noted to have anemia with hemoglobin down to 8.2, and she was noted to have iron deficiency with iron of 11 and also decreased ferritin. She was also noted to have B12 deficiency with B12 of 151. She would need further workup also, and given her epigastric pain and chest pain, one is to rule out possible peptic ulcer disease resulting in this iron deficiency anemia, so she will need GI consultation also. She is being accepted by [facility], Dr. Millard for further evaluation and treatment of her possible seizure-like disorder and needing EEG at that time. She is discharged to [facility] in stable condition. The patient was explained about the possible transfer, which she is agreeable to. PHYSICAL EXAMINATION: Vital Signs: On the day of discharge; temperature of 98.9, pulse of 66, blood pressure 124/69, respiratory rate of 16, and saturating at 96% on room air. General Appearance: The patient is well oriented to time, place, and person. Follows commands spontaneously. Cardiovascular: S1, S2 heard with normal intensity. No gallops. Respiratory: Clear to auscultation bilaterally. No wheeze. No crepitations. Abdomen: Soft. Bowel sounds positive. Nontender. No rigidity. Extremities: No edema in bilateral lower extremities. Neurologic: No gross focal neurological deficits. DISCHARGE MEDICATIONS: Include: 1. Tylenol 650 every 4 hours as needed for pain. 2. Calcium carbonate 500 mg every 2 hours. 3. Vitamin B12, 500 mcg daily. 4. Ferrous sulfate 325 mg twice a day. 5. Folic acid 1 mg at bedtime. CONDITION ON ADMISSION: Poor. CONDITION ON DISCHARGE: Good. Discharged to [facility]. ACTIVITY: As tolerated. DIET: Regular diet. FOLLOWUP: Follow with primary care physician 1 week after getting discharged from the [facility]. Spent over 35 minutes of time in evaluating and treating this patient and discharge plans. [facility] /[id number]
[2017-04-13] MEDS ORDERED: Folic Acid 1 MG Tab PO SCH (21:00)
== END 2017-04-13 12:53 ==
LOC: DL.ED 14:32 → UNDOADMIN 17:00 → DL.MS 17:00 → INTOOBSV 18:14
PROVIDERS: ADMIT Internal Medicine; ATTEND Internal Medicine
DX: R07.9 Chest pain, unspecified (principal); D50.9 Iron deficiency anemia, unspecified; E53.8 Deficiency of other specified B group vitamins; E87.6 Hypokalemia; R40.20 Unspecified coma; F41.9 Anxiety disorder, unspecified; Z79.899 Other long term (current) drug therapy; Z88.0 Allergy status to penicillin; Z88.1 Allergy status to other antibiotic agents; Z90.49 Acquired absence of other specified parts of digestive tract; Z87.891 Personal history of nicotine dependence
CPT/HCPCS: 36415; 71260; 74160; 80048; 80053; 82150; 82607; 82728; 82746; 82962; 83540; 83550; 83690; 84484; 85025; 96361; 96365; 96372; 96375; 96376; 99285; A9270; G0378; J1644; J2060; J2405; J3480; J7050; J7120; Q9967

== ENCOUNTER 2017-06-03 12:24 | Emergency (ER) | payer OTHER ==
[2017-06-03 12:32] VITALS: BP 127/69
[2017-06-03] MEDS ORDERED: Albuterol/Ipratropium 3.0-0.5 MG/3 ML Neb Soln NEB ONE (13:23)
[2017-06-03] MEDS ORDERED: Sodium Chloride 0.9% 10 ML Syringe FLUSH PRN (14:03)
[2017-06-03] MEDS ORDERED: Sodium Chloride 0.9% 1,000 ML IV ONE (14:03)
[2017-06-03] MEDS ORDERED: Ondansetron 4 MG/2 ML SDV IV ONE (14:03)
[2017-06-03 14:34] LABS: ANION GAP 11.1; CHLORIDE,CL 102 mmol/L (101-111); SODIUM,NA 135 mmol/L (135-145)
--- NOTE | 2017-06-03 16:18 | EDM.PDOC ---
ED HPI GENERAL MEDICAL PROBLEM - General Chief Complaint: Respiratory Problem Stated Complaint: SICK Time Seen by Provider: 06/03/17 13:58 Source of Information: Reports: Patient, RN, RN Notes Reviewed History Limitations: Reports: No Limitations - History of Present Illness INITIAL COMMENTS - FREE TEXT/NARRATIVE: {Patient presents with complaint of chills, vomiting and can't breathe since today am. She has had sick contacts with flu. She has positive cough and fever. The cough is dry. Wheeze only at night. She denies any past medical history. Onset: Today Duration: Getting Worse Location: Reports: Chest Quality: Reports: Ache Severity: Moderate Improves with: Reports: None Worsens with: Reports: None Associated Symptoms: Reports: No Other Symptoms Back Pain Score (Numeric/FACES): 5 - Related Data Allergies Allergy/AdvReac Type Severity Reaction Status Date / Time cefaclor [From Ceclor] Allergy Cannot Verified 06/03/17 12:31 Remember Penicillins Allergy Cannot Verified 06/03/17 12:31 Remember Home Meds: Home Meds Acetaminophen [Tylenol] 650 mg PO Q4H PRN tablet 04/13/17 [Rx] Calcium Carbonate [Tums] 500 mg PO Q2H PRN tab.chew 04/13/17 [Rx] Cyanocobalamin (Vitamin B12) [Vitamin B12] 500 mcg PO DAILY tablet 04/13/17 [Rx ] Ferrous Sulfate 325 mg PO BIDMEALS tablet 04/13/17 [Rx] Folic Acid 1 mg PO BEDTIME tablet 04/13/17 [Rx] Nitroglycerin [Nitrostat] 0.4 mg SL ASDIRECTED 04/24/17 [History] Pantoprazole [ProTONIX] 40 mg PO BEDTIME 04/24/17 [History] Past Medical History - Past Health History Medical/Surgical History: Denies Medical/Surgical History Gastrointestinal History: Reports: GERD Genitourinary History: Reports: None 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: Ceserean x4 Psychiatric History: Reports: Anxiety, Panic Attack Hematologic History: Reports: Anemia, Iron Deficiency - Past Surgical History GI Surgical History: Reports: Cholecystectomy Social & Family History - Family History Family Medical History: Noncontributory - Tobacco Use Smoking Status *Q: Never Smoker Years of Tobacco use: 0 Used Tobacco, but Quit: Yes Month Tobacco Last Used: 05/08/11 Second Hand Smoke Exposure: No - Caffeine Use Caffeine Use: Reports: None - Alcohol Use Days Per Week of Alcohol Use: 0 - Recreational Drug Use Recreational Drug Use: No - Living Situation & Occupation Living situation: Reports: , with Family Occupation: Employed ED ROS GENERAL - Review of Systems Review Of Systems: ROS reveals no pertinent complaints other than HPI. ED EXAM, GENERAL - Physical Exam Exam: See Below Exam Limited By: No Limitations General Appearance: Other (shivering and chills.) Eye Exam: Bilateral Eye: Normal Inspection Ears: Normal External Exam, Normal Canal, Hearing Grossly Normal, Normal TMs Nose: Normal Inspection, Normal Mucosa, No Blood Throat/Mouth: Normal Inspection, Normal Lips, Normal Teeth, Normal Gums, Normal Oropharynx, Normal Voice, No Airway Compromise Head: Atraumatic, Normocephalic Neck: Normal Inspection, Supple, Non-Tender, Full Range of Motion Respiratory/Chest: Other (inspiratory wheezes and cough. ) Cardiovascular: Normal Peripheral Pulses, Regular Rate, Rhythm, No Edema, No Gallop, No JVD, No Murmur, No Rub GI/Abdominal: Other (nausea,vomiting and diarrhea.) (Female) Exam: Deferred Rectal (Female) Exam: Deferred Back Exam: Normal Inspection, Full Range of Motion, NT Extremities: Normal Inspection, Normal Range of Motion, Non-Tender, Normal Capillary Refill, No Pedal Edema Neurological: Alert, Oriented, CN II-XII Intact, Normal Cognition, Normal Gait, Normal Reflexes, No Motor/Sensory Deficits Psychiatric: Normal Affect, Normal Mood Skin Exam: Warm, Dry, Intact, Normal Color, No Rash Lymphatic: No Adenopathy Course - Vital Signs Last Recorded V/S: Last Vital Signs Temp 99.8 F 06/03/17 12:28 Pulse 112 H 06/03/17 12:28 Resp 18 06/03/17 12:28 BP 127/69 06/03/17 12:28 Pulse Ox 97 06/03/17 12:28 - Orders/Labs/Meds Labs: Laboratory Tests 06/03/17 06/03/17 06/03/17 Range/Units 14:08 14:08 14:36 WBC 6.9 (5.0-10.0) 10^3/uL RBC 4.32 (4.2-5.4) 10^6/uL Hgb 8.7 L (12.0-16.0) g/dL Hct 30.1 L (37.0-47.0) % MCV 69.7 L (80-100) fL MCH 20.1 L (27.0-34.0) pg MCHC 28.9 L (33.0-35.0) g/dL Plt Count 268 (150-450) 10^3/uL Neut % (Auto) 66.0 (42.2-75.2) % Lymph % (Auto) 24.6 (20.5-50.1) % [place] % (Auto) 9.3 H (2-8) % Eos % (Auto) 0.0 L (1.0-3.0) % Baso % (Auto) 0.1 (0.0-1.0) % Sodium 135 (135-145) mmol/L Potassium 3.1 L (3.6-5.0) mmol/L Chloride 102 (101-111) mmol/L Carbon Dioxide 25.0 (21.0-31.0) mmol/L Anion Gap 11.1 BUN 9 (7-18) mg/dL Creatinine 0.6 (0.6-1.3) mg/dL Est Cr Clr Drug Dosing 105.47 mL/min Estimated GFR (MDRD) > 60 BUN/Creatinine Ratio 15.00 Glucose 93 (74-105) mg/dL Calcium 8.8 (8.4-10.2) mg/dl Total Bilirubin 0.8 (0.2-1.0) mg/dL AST 25 (10-42) IU/L ALT 18 (10-60) IU/L Alkaline Phosphatase 92 (42-121) IU/L Total Protein 7.8 (6.7-8.2) g/dl Albumin 4.0 (3.2-5.5) g/dl Globulin 3.8 Albumin/Globulin Ratio 1.05 Urine Color Light yellow (YELLOW) Urine Appearance Clear (CLEAR) Urine pH 7.0 (5.0-9.0) Ur Specific [place] 1.015 (1.005-1.030) Urine Protein Negative (NEGATIVE) Urine Glucose (UA) Negative (NEGATIVE) Urine Ketones Negative (NEGATIVE) Urine Occult Blood Negative (NEGATIVE) Urine Nitrite Negative (NEGATIVE) Urine Bilirubin Negative (NEGATIVE) Urine Urobilinogen 0.2 (0.2-1.0) mg/dL Ur Leukocyte Esterase Negative (NEGATIVE) Urine RBC 0-5 /HPF Urine WBC 0-5 (0-5/HPF) /HPF Ur Epithelial Cells Rare /HPF Urine Bacteria Rare (0-FEW/HPF) /HPF Urine HCG, Qual Urine Opiates Screen (NEGATIVE) Ur Oxycodone Screen (NEGATIVE) Urine Methadone Screen (NEGATIVE) Ur Barbiturates Screen (NEGATIVE) U Tricyclic Antidepress (NEGATIVE) Ur Phencyclidine Scrn (NEGATIVE) Ur Amphetamine Screen (NEGATIVE) U Methamphetamines Scrn (NEGATIVE) Urine MDMA Screen (NEGATIVE) U Benzodiazepines Scrn (NEGATIVE) Urine Cocaine Screen (NEGATIVE) U Marijuana (THC) Screen (NEGATIVE) 06/03/17 06/03/17 Range/Units 14:36 14:36 WBC (5.0-10.0) 10^3/uL RBC (4.2-5.4) 10^6/uL Hgb (12.0-16.0) g/dL Hct (37.0-47.0) % MCV (80-100) fL MCH (27.0-34.0) pg MCHC (33.0-35.0) g/dL Plt Count (150-450) 10^3/uL Neut % (Auto) (42.2-75.2) % Lymph % (Auto) (20.5-50.1) % [place] % (Auto) (2-8) % Eos % (Auto) (1.0-3.0) % Baso % (Auto) (0.0-1.0) % Sodium (135-145) mmol/L Potassium (3.6-5.0) mmol/L Chloride (101-111) mmol/L Carbon Dioxide (21.0-31.0) mmol/L Anion Gap BUN (7-18) mg/dL Creatinine (0.6-1.3) mg/dL Est Cr Clr Drug Dosing mL/min Estimated GFR (MDRD) BUN/Creatinine Ratio Glucose (74-105) mg/dL Calcium (8.4-10.2) mg/dl Total Bilirubin (0.2-1.0) mg/dL AST (10-42) IU/L ALT (10-60) IU/L Alkaline Phosphatase (42-121) IU/L Total Protein (6.7-8.2) g/dl Albumin (3.2-5.5) g/dl Globulin Albumin/Globulin Ratio Urine Color (YELLOW) Urine Appearance (CLEAR) Urine pH (5.0-9.0) Ur Specific [place] (1.005-1.030) Urine Protein (NEGATIVE) Urine Glucose (UA) (NEGATIVE) Urine Ketones (NEGATIVE) Urine Occult Blood (NEGATIVE) Urine Nitrite (NEGATIVE) Urine Bilirubin (NEGATIVE) Urine Urobilinogen (0.2-1.0) mg/dL Ur Leukocyte Esterase (NEGATIVE) Urine RBC /HPF Urine WBC (0-5/HPF) /HPF Ur Epithelial Cells /HPF Urine Bacteria (0-FEW/HPF) /HPF Urine HCG, Qual Negative Urine Opiates Screen Negative (NEGATIVE) Ur Oxycodone Screen Negative (NEGATIVE) Urine Methadone Screen Negative (NEGATIVE) Ur Barbiturates Screen Negative (NEGATIVE) U Tricyclic Antidepress Negative (NEGATIVE) Ur Phencyclidine Scrn Negative (NEGATIVE) Ur Amphetamine Screen Negative (NEGATIVE) U Methamphetamines Scrn Negative (NEGATIVE) Urine MDMA Screen Negative (NEGATIVE) U Benzodiazepines Scrn Negative (NEGATIVE) Urine Cocaine Screen Negative (NEGATIVE) U Marijuana (THC) Screen Negative (NEGATIVE) Meds: Medications Discontinued Medications Generic Name Dose Route Start Last Admin Trade Name Freq PRN Reason Stop Dose Admin Albuterol/Ipratropium 3 ml 06/03/17 13:23 06/03/17 13:28 Duoneb 3.0-0.5 Mg/3 Ml NEB 06/03/17 13:24 3 ml ONETIME ONE Administration Sodium Chloride 1,000 mls @ 999 mls/hr 06/03/17 14:03 06/03/17 14:09 Normal Saline IV 06/03/17 15:03 999 mls/hr .BOLUS ONE Administration Ondansetron HCl 4 mg 06/03/17 14:03 06/03/17 14:10 Zofran IV 06/03/17 14:04 4 mg ONETIME ONE Administration Sodium Chloride 10 ml 06/03/17 14:03 Saline Flush FLUSH ASDIRECTED PRN Keep Vein Open - Radiology Interpretation Free Text/Narrative:: Chest xray: No acute findings see rad report Departure - Departure Time of Disposition: 16:16 Disposition: Home, Self-Care 01 Condition: Fair Clinical Impression: Upper respiratory infection, viral, Hypokalemia - Discharge Information Instructions: Hypokalemia, Upper Respiratory Infection, Adult, [id number], Potassium Content of Foods Referrals: PCP,None [Primary Care Provider] - Forms: ED Department Discharge Additional Instructions: RX: Potassium Chloride Follow up with your primary care facility next week. Drink plenty of fluids Rest
== END 2017-06-03 16:55 | disposition home or self-care (01) ==
LOC: DL.ED 12:24
DX: J06.9 Acute upper respiratory infection, unspecified (principal); E87.6 Hypokalemia; Z88.0 Allergy status to penicillin; Z88.1 Allergy status to other antibiotic agents
CPT/HCPCS: 36415; 71046; 80053; 80305; 81001; 81025; 85025; 87804; 94640; 96365; 96375; 99285; J2405; J7030

== ENCOUNTER 2017-06-23 15:54 | Emergency (ER) | payer OTHER ==
--- NOTE | 2017-06-23 16:41 | EDM.PDOC ---
ED HPI GENERAL MEDICAL PROBLEM - General Chief Complaint: Neurological Problem Stated Complaint: BY AMBULANCE Time Seen by Provider: 06/23/17 16:40 Source of Information: Reports: EMS History Limitations: Reports: Altered Mental Status - History of Present Illness INITIAL COMMENTS - FREE TEXT/NARRATIVE: Patient was at another medical facility with a complaint of nausea and vomiting. Patient had an emesis at that facility. She was administered Phenergan and became unresponsive. Provider states that patient was breathing but not responding to questions or painful stimuli. IV was accessed. Provider originally called [facility] and was told to send the [facility] for stabilization. Patient had a similar episode of altered mental status and had a negative workup. GCS is a 3 Notes from outside facility reviewed. Patient has unintentional weight loss of about 30 pounds. Patient has been under a lot of stress recently. Previous labs showed a TSH of 0.32 Onset: Today, Sudden Duration: Constant Location: Reports: Generalized - Related Data Allergies Allergy/AdvReac Type Severity Reaction Status Date / Time aspirin Allergy Cannot Verified 06/23/17 17:10 Remember cefaclor [From Ceclor] Allergy Cannot Verified 06/23/17 17:10 Remember Penicillins Allergy Cannot Verified 06/23/17 17:10 Remember sulfamethoxazole Allergy Cannot Verified 06/23/17 17:10 Remember trimethoprim Allergy Cannot Verified 06/23/17 17:10 Remember Home Meds: Home Meds Acetaminophen [Tylenol] 650 mg PO Q4H PRN tablet 04/13/17 [Rx] Calcium Carbonate [Tums] 500 mg PO Q2H PRN tab.chew 04/13/17 [Rx] Cyanocobalamin (Vitamin B12) [Vitamin B12] 500 mcg PO DAILY tablet 04/13/17 [Rx ] Ferrous Sulfate 325 mg PO BIDMEALS tablet 04/13/17 [Rx] Folic Acid 1 mg PO BEDTIME tablet 04/13/17 [Rx] Nitroglycerin [Nitrostat] 0.4 mg SL ASDIRECTED 04/24/17 [History] Pantoprazole [ProTONIX] 40 mg PO BEDTIME 04/24/17 [History] Past Medical History - Past Health History Medical/Surgical History: Denies Medical/Surgical History Gastrointestinal History: Reports: GERD Genitourinary History: Reports: None 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/BYN History: Ceserean x4 Psychiatric History: Reports: Anxiety, Panic Attack Hematologic History: Reports: Anemia, Iron Deficiency - Past Surgical History GI Surgical History: Reports: Cholecystectomy Social & Family History - Family History Family Medical History: Noncontributory - Tobacco Use Smoking Status *Q: Former Smoker Years of Tobacco use: 0 Used Tobacco, but Quit: Yes Month Tobacco Last Used: 05/2017 Second Hand Smoke Exposure: No - Caffeine Use Caffeine Use: Reports: None - Alcohol Use Days Per Week of Alcohol Use: 0 - Recreational Drug Use Recreational Drug Use: No - Living Situation & Occupation Living situation: Reports: , with Family Occupation: Employed ED ROS GENERAL - Review of Systems Review Of Systems: Unable To Obtain - Physical Exam Exam: See Below Exam Limited By: Altered Mental Status General Appearance: Obtunded, Other ( pupils equal and reactive to light) Ears: Normal TMs Nose: Normal Inspection, Normal Mucosa Throat/Mouth: Normal Lips, Normal Oropharynx, No Airway Compromise Head Exam: Atraumatic, Normocephalic Neck: Normal Inspection. No: Thyromegaly Respiratory/Chest: No Respiratory Distress, Lungs Clear, Normal Breath Sounds Cardiovascular: Regular Rate, Rhythm. No: No Edema GI/Abdominal: Normal Bowel Sounds, No Distention Neuro Exam (Abbreviated): Unresponsive, Other ( Perkins Coma Scale is 3. Patient does not open her eyes. No verbal response. Best motor response is none even in light of painful stimulus she does not withdraw from pain) Extremities: Normal Capillary Refill Skin Exam: Warm, Dry, Intact, Normal Color EKG INTERPRETATION Rhythm: NSR Course - Vital Signs Last Recorded V/S: Last Vital Signs Temp 99.2 F 06/23/17 16:21 Pulse 73 06/23/17 18:56 Resp 23 H 06/23/17 18:56 BP 109/65 06/23/17 18:56 Pulse Ox 94 L 06/23/17 18:56 - Orders/Labs/Meds Orders: Active Orders 24 hr Category Date Time Status EKG Documentation Completion [RC] STAT Care 06/23/17 18:57 Active Mejais Catheter Insertion [Insert Urinary Catheter] [OM. Care 06/23/17 16:05 Ordered PC] Q24H Urinary Catheter Assessment [RC] ASDIRECTED Care 06/23/17 16:22 Active TROPONIN I [CHEM] Stat Lab 06/23/17 16:48 Received Sodium Chloride 0.9% [Normal Saline] 1,000 ml Med 06/23/17 17:00 Active IV ASDIRECTED Medication Orders Sodium Chloride (Normal Saline) 1,000 mls @ 500 mls/hr IV ASDIRECTED JUDI Last Admin: 06/23/17 17:04 Dose: 500 mls/hr Labs: Laboratory Tests 06/23/17 06/23/17 06/23/17 Range/Units 16:17 16:17 16:48 WBC 6.1 (5.0-10.0) 10^3/uL RBC 3.81 L (4.2-5.4) 10^6/uL Hgb 7.8 L (12.0-16.0) g/dL Hct 26.9 L (37.0-47.0) % MCV 70.6 L (80-100) fL MCH 20.5 L (27.0-34.0) pg MCHC 29.0 L (33.0-35.0) g/dL Plt Count 259 (150-450) 10^3/uL Neut % (Auto) 60.9 (42.2-75.2) % Lymph % (Auto) 30.5 (20.5-50.1) % [place] % (Auto) 8.6 H (2-8) % Eos % (Auto) 0.0 L (1.0-3.0) % Baso % (Auto) 0.0 (0.0-1.0) % Sodium (135-145) mmol/L Potassium (3.6-5.0) mmol/L Chloride (101-111) mmol/L Carbon Dioxide (21.0-31.0) mmol/L Anion Gap BUN (7-18) mg/dL Creatinine (0.6-1.3) mg/dL Est Cr Clr Drug Dosing mL/min Estimated GFR (MDRD) BUN/Creatinine Ratio Glucose (74-105) mg/dL Calcium (8.4-10.2) mg/dl Total Bilirubin (0.2-1.0) mg/dL AST (10-42) IU/L ALT (10-60) IU/L Alkaline Phosphatase (42-121) IU/L Total Protein (6.7-8.2) g/dl Albumin (3.2-5.5) g/dl Globulin Albumin/Globulin Ratio HCG, Qual Urine Color Yellow (YELLOW) Urine Appearance Clear (CLEAR) Urine pH 6.0 (5.0-9.0) Ur Specific [place] >= 1.030 (1.005-1.030) Urine Protein Negative (NEGATIVE) Urine Glucose (UA) Negative (NEGATIVE) Urine Ketones Trace H (NEGATIVE) Urine Occult Blood Negative (NEGATIVE) Urine Nitrite Negative (NEGATIVE) Urine Bilirubin Small H (NEGATIVE) Urine Urobilinogen 2.0 H (0.2-1.0) mg/dL Ur Leukocyte Esterase Negative (NEGATIVE) Urine RBC 0-5 /HPF Urine WBC 0-5 (0-5/HPF) /HPF Ur Epithelial Cells Moderate H /HPF Urine Bacteria Few (0-FEW/HPF) /HPF Urine Mucus Many H /LPF Urine Opiates Screen Negative (NEGATIVE) Ur Oxycodone Screen Negative (NEGATIVE) Urine Methadone Screen Negative (NEGATIVE) Ur Barbiturates Screen Negative (NEGATIVE) U Tricyclic Antidepress Negative (NEGATIVE) Ur Phencyclidine Scrn Negative (NEGATIVE) Ur Amphetamine Screen Negative (NEGATIVE) U Methamphetamines Scrn Negative (NEGATIVE) Urine MDMA Screen Negative (NEGATIVE) U Benzodiazepines Scrn Negative (NEGATIVE) Urine Cocaine Screen Negative (NEGATIVE) U Marijuana (THC) Screen Negative (NEGATIVE) 06/23/17 Range/Units 16:48 WBC (5.0-10.0) 10^3/uL RBC (4.2-5.4) 10^6/uL Hgb (12.0-16.0) g/dL Hct (37.0-47.0) % MCV (80-100) fL MCH (27.0-34.0) pg MCHC (33.0-35.0) g/dL Plt Count (150-450) 10^3/uL Neut % (Auto) (42.2-75.2) % Lymph % (Auto) (20.5-50.1) % [place] % (Auto) (2-8) % Eos % (Auto) (1.0-3.0) % Baso % (Auto) (0.0-1.0) % Sodium 137 (135-145) mmol/L Potassium 3.4 L (3.6-5.0) mmol/L Chloride 104 (101-111) mmol/L Carbon Dioxide 25.0 (21.0-31.0) mmol/L Anion Gap 11.4 BUN 11 (7-18) mg/dL Creatinine 0.5 L (0.6-1.3) mg/dL Est Cr Clr Drug Dosing 126.57 mL/min Estimated GFR (MDRD) > 60 BUN/Creatinine Ratio 22.00 Glucose 107 H (74-105) mg/dL Calcium 8.4 (8.4-10.2) mg/dl Total Bilirubin 0.3 (0.2-1.0) mg/dL AST 17 (10-42) IU/L ALT 11 (10-60) IU/L Alkaline Phosphatase 76 (42-121) IU/L Total Protein 6.8 (6.7-8.2) g/dl Albumin 3.3 (3.2-5.5) g/dl Globulin 3.5 Albumin/Globulin Ratio 0.94 HCG, Qual Negative Urine Color (YELLOW) Urine Appearance (CLEAR) Urine pH (5.0-9.0) Ur Specific [place] (1.005-1.030) Urine Protein (NEGATIVE) Urine Glucose (UA) (NEGATIVE) Urine Ketones (NEGATIVE) Urine Occult Blood (NEGATIVE) Urine Nitrite (NEGATIVE) Urine Bilirubin (NEGATIVE) Urine Urobilinogen (0.2-1.0) mg/dL Ur Leukocyte Esterase (NEGATIVE) Urine RBC /HPF Urine WBC (0-5/HPF) /HPF Ur Epithelial Cells /HPF Urine Bacteria (0-FEW/HPF) /HPF Urine Mucus /LPF Urine Opiates Screen (NEGATIVE) Ur Oxycodone Screen (NEGATIVE) Urine Methadone Screen (NEGATIVE) Ur Barbiturates Screen (NEGATIVE) U Tricyclic Antidepress (NEGATIVE) Ur Phencyclidine Scrn (NEGATIVE) Ur Amphetamine Screen (NEGATIVE) U Methamphetamines Scrn (NEGATIVE) Urine MDMA Screen (NEGATIVE) U Benzodiazepines Scrn (NEGATIVE) Urine Cocaine Screen (NEGATIVE) U Marijuana (THC) Screen (NEGATIVE) Meds: Medications Generic Name Dose Route Start Last Admin Trade Name Freq PRN Reason Stop Dose Admin Sodium Chloride 1,000 mls @ 500 mls/hr 06/23/17 17:00 06/23/17 17:04 Normal Saline IV 500 mls/hr ASDIRECTED [facility] Administration - Re-Assessments/Exams Free Text/Narrative Re-Assessment/Exam: head CT is negative. Patient continues to be unresponsive. Vital signs are stable. No change in her mental status. Transfers initiated. 06/23/17 18:20 06/23/17 19:03 Departure - Departure Time of Disposition: 19:01 Disposition: DC/Tfer to Acute Hospital 02 Condition: Fair Clinical Impression: Unresponsive Anemia Qualifiers: Anemia type: unspecified type Qualified Code(s): D64.9 - Anemia, unspecified - Discharge Information Forms: ED Department Discharge Additional Instructions: Patient is transferred to [facility] - My Orders Last 24 Hours: My Active Orders 06/23/17 16:05 Mejias Catheter Insertion [Insert Urinary Catheter] [OM.PC] Q24H 06/23/17 16:22 Urinary Catheter Assessment [RC] ASDIRECTED 06/23/17 16:48 TROPONIN I [CHEM] Stat 06/23/17 17:00 Sodium Chloride 0.9% [Normal Saline] 1,000 ml IV ASDIRECTED 06/23/17 18:57 EKG Documentation Completion [RC] STAT - Assessment/Plan Last 24 Hours: My Active Orders 06/23/17 16:05 Mejias Catheter Insertion [Insert Urinary Catheter] [OM.PC] Q24H 06/23/17 16:22 Urinary Catheter Assessment [RC] ASDIRECTED 06/23/17 16:48 TROPONIN I [CHEM] Stat 06/23/17 17:00 Sodium Chloride 0.9% [Normal Saline] 1,000 ml IV ASDIRECTED 06/23/17 18:57 EKG Documentation Completion [RC] STAT
[2017-06-23] MEDS ORDERED: Sodium Chloride 0.9% 1,000 ML IV SCH (17:00)
[2017-06-23 17:15] LABS: CHLORIDE,CL 104 mmol/L (101-111); SODIUM,NA 137 mmol/L (135-145)
[2017-06-23 18:56] VITALS: BP 109/65
== END 2017-06-23 19:36 ==
LOC: DL.ED 15:54
DX: R40.20 Unspecified coma (principal); D64.9 Anemia, unspecified; Z88.6 Allergy status to analgesic agent; Z88.1 Allergy status to other antibiotic agents; Z88.0 Allergy status to penicillin; Z88.2 Allergy status to sulfonamides; Z79.899 Other long term (current) drug therapy; Z87.891 Personal history of nicotine dependence
CPT/HCPCS: 36415; 70450; 80053; 80305; 81001; 84484; 84703; 85025; 93005; 96365; 96366; 99285; J7030

== ENCOUNTER 2017-12-29 13:17 | Emergency (ER) | payer OTHER ==
[2017-12-29 12:48] VITALS: BP 120/79
--- NOTE | 2017-12-29 12:53 | CT ---
Clinical history: 42-year-old female emergency department "unresponsive" but not unconscious. Scan technique: Volume acquisition of data emergency unenhanced CT scan of the head and brain obtaine d while the patient was lying supine on the Siemens multi slice scanner [place], [place]. All data archived in the PACS system for storage, reformatting axial/sagittal/cor onal planes and study (bone/brain windows). Interpretation: Negative exam. Symmetric clear pneumatization of the mastoid and paranasal sinuses. Uniformly thick bony calvarium without sign of skull fracture, underlying brain contusion or abnormal extracerebral/intracranial epidural/subdural hematoma. Asymmetric mild atrophy over the frontal gene etal convexity, particularly on the left. No evidence? No supratentorial or posterior fossa mass lesion. No hydrocephalus. No focal areas of ischemic infarct or signs of encephalomalacia. No cerebral edema. No sign of acute intracerebral/intraventricular/subarachnoid bleed. Cerebellum and brainstem unremarkable.
[2017-12-29 13:17] LABS: ACETAMINOPHEN < 10
[~2017-12-29 13:17] MED LIST: Naloxone 2 MG/2 ML Syringe IVPUSH ONE
[2017-12-29 13:18] LABS: ANION GAP 10.4; CHLORIDE,CL 107 mmol/L (101-111); SODIUM,NA 139 mmol/L (135-145)
--- NOTE | 2017-12-29 13:22 | EDM.PDOC ---
ED HPI GENERAL MEDICAL PROBLEM - General Chief Complaint: Respiratory Problem Stated Complaint: SOB / BY AMBULANCE Time Seen by Provider: 12/29/17 12:35 Source of Information: Reports: EMS, Family History Limitations: Reports: Altered Mental Status - History of Present Illness INITIAL COMMENTS - FREE TEXT/NARRATIVE: This 42 yo female patient was brought to the ED by [facility] due to altered mentation. EMS reports that the patient was at work when she started to breath fast. Bystanders report that the patient suddenly stopped answering questions when they called the ambulance. EMS reports that the patient has been responsive to a sternal rub, but does not respond to anything else. The patient' s boyfriend reports that the patient had a similar episode in the past. The patient's father reports that she was told that it was stress related. The patient's father reports that the patient was transferred from [place] to [place] during that incident. The patient was released the next day and advised to go home and take it easy. 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 The patient has been under a lot of stress at her job. Onset: Today Duration: Minutes:, Constant Location: Reports: Other Quality: Reports: Other Severity: Severe Improves with: Reports: None Worsens with: Reports: None Associated Symptoms: Reports: Other - Related Data Allergies Allergy/AdvReac Type Severity Reaction Status Date / Time aspirin Allergy Cannot Verified 07/06/17 06:46 Remember cefaclor [From Ceclor] Allergy Cannot Verified 07/06/17 06:46 Remember Penicillins Allergy Cannot Verified 07/06/17 06:46 Remember sulfamethoxazole Allergy Cannot Verified 07/06/17 06:46 Remember trimethoprim Allergy Cannot Verified 07/06/17 06:46 Remember promethazine AdvReac Confusion Verified 07/06/17 06:46 Home Meds: Home Meds Calcium Carbonate [Tums] 500 mg PO Q2H PRN tab.chew 04/13/17 [Rx] Cyanocobalamin (Vitamin B12) [Vitamin B12] 500 mcg PO DAILY tablet 04/13/17 [Rx ] Ferrous Sulfate 325 mg PO BIDMEALS tablet 04/13/17 [Rx] Folic Acid 1 mg PO BEDTIME tablet 04/13/17 [Rx] Nitroglycerin [Nitrostat] 0.4 mg SL ASDIRECTED 04/24/17 [History] Pantoprazole [ProTONIX] 40 mg PO BEDTIME 04/24/17 [History] Acetaminophen [Tylenol] 500 mg PO Q4H PRN 07/06/17 [History] ClonazePAM [KlonoPIN] 0.5 mg PO TID PRN 07/06/17 [History] Past Medical History - Past Health History Medical/Surgical History: Denies Medical/Surgical History Cardiovascular History: Reports: Angina Respiratory History: Reports: Asthma, Sleep Apnea Gastrointestinal History: Reports: GERD, Other (See Below) Other Gastrointestinal History: HX OF GASTROENTERITIS Genitourinary History: Reports: None 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 Psychiatric History: Reports: Anxiety, Panic Attack Endocrine/Metabolic History: Reports: Hyperthyroidism Hematologic History: Reports: Anemia, Iron Deficiency, Other (See Below) 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 - Living Situation & Occupation Living situation: Reports: , with Family Occupation: Employed ED ROS GENERAL - Review of Systems Review Of Systems: ROS reveals no pertinent complaints other than HPI. ED EXAM, GENERAL - Physical Exam Exam: See Below Exam Limited By: No Limitations General Appearance: Other (Responsive only to painful stemuli. The patient will attempt to open her eyes to voice and will squeeze her boyfriends hand when asked questions. ) Eye Exam: Bilateral Eye: Normal Inspection, PERRL Ears: Normal External Exam, Normal Canal, Hearing Grossly Normal, Normal TMs Nose: Normal Inspection, Normal Mucosa, No Blood Throat/Mouth: Normal Inspection, Normal Lips, Normal Teeth, Normal Gums, Normal Oropharynx, Normal Voice, No Airway Compromise Head: Atraumatic, Normocephalic Neck: Normal Inspection, Supple, Non-Tender, Full Range of Motion Respiratory/Chest: No Respiratory Distress, Lungs Clear, Normal Breath Sounds, No Accessory Muscle Use, Chest Non-Tender Cardiovascular: Normal Peripheral Pulses, Regular Rate, Rhythm, No Edema, No Gallop, No JVD, No Murmur, No Rub GI/Abdominal: Normal Bowel Sounds, Soft, Non-Tender, No Organomegaly, No Distention, No Abnormal Bruit, No Mass, Pelvis Stable (Female) Exam: Deferred Rectal (Female) Exam: Deferred Extremities: Normal Inspection, Non-Tender, No Pedal Edema, Normal Capillary Refill Neurological: Other (responds to painful stemuli) Skin Exam: Warm, Dry, Intact, Normal Color, No Rash Lymphatic: No Adenopathy Course - Vital Signs Last Recorded V/S: Last Vital Signs Temp 36.6 C 12/29/17 12:28 Pulse 61 12/29/17 12:28 Resp 16 12/29/17 12:28 BP 120/79 12/29/17 12:28 Pulse Ox - Orders/Labs/Meds Orders: Active Orders 24 hr Category Date Time Status EKG Documentation Completion [RC] URGENT Care 12/29/17 12:27 Active Labs: Laboratory Tests 12/29/17 12/29/17 12/29/17 Range/Units 12:11 12:11 12:11 WBC (5.0-10.0) 10^3/uL RBC (4.2-5.4) 10^6/uL Hgb (12.0-16.0) g/dL Hct (37.0-47.0) % MCV (80-100) fL MCH (27.0-34.0) pg MCHC (33.0-35.0) g/dL Plt Count (150-450) 10^3/uL Neut % (Auto) (42.2-75.2) % Lymph % (Auto) (20.5-50.1) % Mccone % (Auto) (2-8) % Eos % (Auto) (1.0-3.0) % Baso % (Auto) (0.0-1.0) % Sodium (135-145) mmol/L Potassium (3.6-5.0) mmol/L Chloride (101-111) mmol/L Carbon Dioxide (21.0-31.0) mmol/L Anion Gap BUN (7-18) mg/dL Creatinine (0.6-1.3) mg/dL Est Cr Clr Drug Dosing mL/min Estimated GFR (MDRD) BUN/Creatinine Ratio Glucose (74-105) mg/dL Calcium (8.4-10.2) mg/dl Total Bilirubin (0.2-1.0) mg/dL AST (10-42) IU/L ALT (10-60) IU/L Alkaline Phosphatase (42-121) IU/L Ammonia (11-35) umol/L Troponin I (0.00-0.02) ng/ml Total Protein (6.7-8.2) g/dl Albumin (3.2-5.5) g/dl Globulin Albumin/Globulin Ratio Amylase (28-100) U/L Lipase (22-51) U/L Urine Color Yellow (YELLOW) Urine Appearance Clear (CLEAR) Urine pH 5.5 (5.0-9.0) Ur Specific [place] 1.025 (1.005-1.030) Urine Protein Negative (NEGATIVE) Urine Glucose (UA) Negative (NEGATIVE) Urine Ketones Negative (NEGATIVE) Urine Occult Blood Negative (NEGATIVE) Urine Nitrite Negative (NEGATIVE) Urine Bilirubin Negative (NEGATIVE) Urine Urobilinogen 0.2 (0.2-1.0) mg/dL Ur Leukocyte Esterase Trace H (NEGATIVE) Urine RBC Not seen /HPF Urine WBC 5-10 H (0-5/HPF) /HPF Ur Epithelial Cells Few /HPF Urine Bacteria Few (0-FEW/HPF) /HPF Urine Mucus Many H /LPF Urine HCG, Qual Negative Salicylates Urine Opiates Screen Negative (NEGATIVE) Ur Oxycodone Screen Negative (NEGATIVE) Urine Methadone Screen Negative (NEGATIVE) Acetaminophen Ur Barbiturates Screen Negative (NEGATIVE) U Tricyclic Antidepress Negative (NEGATIVE) Ur Phencyclidine Scrn Negative (NEGATIVE) Ur Amphetamine Screen Negative (NEGATIVE) U Methamphetamines Scrn Negative (NEGATIVE) Urine MDMA Screen Negative (NEGATIVE) U Benzodiazepines Scrn Negative (NEGATIVE) Urine Cocaine Screen Negative (NEGATIVE) U Marijuana (THC) Screen Negative (NEGATIVE) Ethyl Alcohol mg/dL 12/29/17 12/29/17 12/29/17 Range/Units 12:50 12:50 12:50 WBC 4.8 L (5.0-10.0) 10^3/uL RBC 3.96 L (4.2-5.4) 10^6/uL Hgb 9.0 L (12.0-16.0) g/dL Hct 30.5 L (37.0-47.0) % MCV 77.0 L D (80-100) fL MCH 22.7 L (27.0-34.0) pg MCHC 29.5 L (33.0-35.0) g/dL Plt Count 258 (150-450) 10^3/uL Neut % (Auto) 62.1 (42.2-75.2) % Lymph % (Auto) 27.3 (20.5-50.1) % Mccone % (Auto) 10.4 H (2-8) % Eos % (Auto) 0.0 L (1.0-3.0) % Baso % (Auto) 0.2 (0.0-1.0) % Sodium (135-145) mmol/L Potassium (3.6-5.0) mmol/L Chloride (101-111) mmol/L Carbon Dioxide (21.0-31.0) mmol/L Anion Gap BUN (7-18) mg/dL Creatinine (0.6-1.3) mg/dL Est Cr Clr Drug Dosing mL/min Estimated GFR (MDRD) BUN/Creatinine Ratio Glucose (74-105) mg/dL Calcium (8.4-10.2) mg/dl Total Bilirubin (0.2-1.0) mg/dL AST (10-42) IU/L ALT (10-60) IU/L Alkaline Phosphatase (42-121) IU/L Ammonia 12 (11-35) umol/L Troponin I (0.00-0.02) ng/ml Total Protein (6.7-8.2) g/dl Albumin (3.2-5.5) g/dl Globulin Albumin/Globulin Ratio Amylase 30 (28-100) U/L Lipase 21 L (22-51) U/L Urine Color (YELLOW) Urine Appearance (CLEAR) Urine pH (5.0-9.0) Ur Specific [place] (1.005-1.030) Urine Protein (NEGATIVE) Urine Glucose (UA) (NEGATIVE) Urine Ketones (NEGATIVE) Urine Occult Blood (NEGATIVE) Urine Nitrite (NEGATIVE) Urine Bilirubin (NEGATIVE) Urine Urobilinogen (0.2-1.0) mg/dL Ur Leukocyte Esterase (NEGATIVE) Urine RBC /HPF Urine WBC (0-5/HPF) /HPF Ur Epithelial Cells /HPF Urine Bacteria (0-FEW/HPF) /HPF Urine Mucus /LPF Urine HCG, Qual Salicylates < 4 Urine Opiates Screen (NEGATIVE) Ur Oxycodone Screen (NEGATIVE) Urine Methadone Screen (NEGATIVE) Acetaminophen < 10 Ur Barbiturates Screen (NEGATIVE) U Tricyclic Antidepress (NEGATIVE) Ur Phencyclidine Scrn (NEGATIVE) Ur Amphetamine Screen (NEGATIVE) U Methamphetamines Scrn (NEGATIVE) Urine MDMA Screen (NEGATIVE) U Benzodiazepines Scrn (NEGATIVE) Urine Cocaine Screen (NEGATIVE) U Marijuana (THC) Screen (NEGATIVE) Ethyl Alcohol < 5 mg/dL 12/29/17 Range/Units 12:50 WBC (5.0-10.0) 10^3/uL RBC (4.2-5.4) 10^6/uL Hgb (12.0-16.0) g/dL Hct (37.0-47.0) % MCV (80-100) fL MCH (27.0-34.0) pg MCHC (33.0-35.0) g/dL Plt Count (150-450) 10^3/uL Neut % (Auto) (42.2-75.2) % Lymph % (Auto) (20.5-50.1) % Mccone % (Auto) (2-8) % Eos % (Auto) (1.0-3.0) % Baso % (Auto) (0.0-1.0) % Sodium 139 (135-145) mmol/L Potassium 3.4 L (3.6-5.0) mmol/L Chloride 107 (101-111) mmol/L Carbon Dioxide 25.0 (21.0-31.0) mmol/L Anion Gap 10.4 BUN 12 (7-18) mg/dL Creatinine 0.6 (0.6-1.3) mg/dL Est Cr Clr Drug Dosing 104.40 mL/min Estimated GFR (MDRD) > 60 BUN/Creatinine Ratio 20.00 Glucose 78 (74-105) mg/dL Calcium 8.7 (8.4-10.2) mg/dl Total Bilirubin 0.5 (0.2-1.0) mg/dL AST 18 (10-42) IU/L ALT 13 (10-60) IU/L Alkaline Phosphatase 80 (42-121) IU/L Ammonia (11-35) umol/L Troponin I < 0.02 (0.00-0.02) ng/ml Total Protein 7.1 (6.7-8.2) g/dl Albumin 3.6 (3.2-5.5) g/dl Globulin 3.5 Albumin/Globulin Ratio 1.03 Amylase (28-100) U/L Lipase (22-51) U/L Urine Color (YELLOW) Urine Appearance (CLEAR) Urine pH (5.0-9.0) Ur Specific [place] (1.005-1.030) Urine Protein (NEGATIVE) Urine Glucose (UA) (NEGATIVE) Urine Ketones (NEGATIVE) Urine Occult Blood (NEGATIVE) Urine Nitrite (NEGATIVE) Urine Bilirubin (NEGATIVE) Urine Urobilinogen (0.2-1.0) mg/dL Ur Leukocyte Esterase (NEGATIVE) Urine RBC /HPF Urine WBC (0-5/HPF) /HPF Ur Epithelial Cells /HPF Urine Bacteria (0-FEW/HPF) /HPF Urine Mucus /LPF Urine HCG, Qual Salicylates Urine Opiates Screen (NEGATIVE) Ur Oxycodone Screen (NEGATIVE) Urine Methadone Screen (NEGATIVE) Acetaminophen Ur Barbiturates Screen (NEGATIVE) U Tricyclic Antidepress (NEGATIVE) Ur Phencyclidine Scrn (NEGATIVE) Ur Amphetamine Screen (NEGATIVE) U Methamphetamines Scrn (NEGATIVE) Urine MDMA Screen (NEGATIVE) U Benzodiazepines Scrn (NEGATIVE) Urine Cocaine Screen (NEGATIVE) U Marijuana (THC) Screen (NEGATIVE) Ethyl Alcohol mg/dL Meds: Medications Discontinued Medications Generic Name Dose Route Start Last Admin Trade Name Freq PRN Reason Stop Dose Admin Naloxone HCl 0.4 mg 12/29/17 12:18 12/29/17 12:25 Narcan IVPUSH 12/29/17 12:19 0.4 mg ONETIME ONE Administration Departure - Departure Time of Disposition: 14:25 Disposition: DC/Tfer to Acute Hospital 02 Condition: Fair Clinical Impression: Unresponsive - Discharge Information *PRESCRIPTION DRUG MONITORING PROGRAM REVIEWED*: Not Applicable *COPY OF PRESCRIPTION DRUG MONITORING REPORT IN PATIENT ELLIOT: Not Applicable Forms: Interfacility Transfer EMTALA Care Plan Goals: Discussed the history, examination, lab, EKG and CT results with Dr. Ledesma. Dr. Ledesma accepted the patient for continued evaluation and further management. The patient will be transported by [facility]. - My Orders Last 24 Hours: My Active Orders 12/29/17 12:27 EKG Documentation Completion [RC] URGENT - Assessment/Plan Last 24 Hours: My Active Orders 12/29/17 12:27 EKG Documentation Completion [RC] URGENT
--- NOTE | 2018-01-01 16:58 | EKG ---
12/29/2017 - KRISTINA MACEDO - TIME: 12:22 p.m. FINDINGS: As per my reading, sinus rhythm at 62 with ventricular premature complexes. [facility] /[id number]
== END 2017-12-29 14:32 ==
LOC: DL.ED 13:17
DX: R41.82 Altered mental status, unspecified (principal); Z88.8 Allergy status to other drugs, medicaments and biological substances; Z79.899 Other long term (current) drug therapy
CPT/HCPCS: 36415; 70450; 80053; 80305; 81001; 81025; 82140; 82150; 83690; 84484; 85025; 93005; 96374; 99285; G0480; J2310

== ENCOUNTER 2018-07-25 16:53 | Emergency (ER) | payer BC, OTHER ==
[2018-07-25 17:02] VITALS: BP 123/61
[2018-07-25] MEDS ORDERED: Morphine 2 MG/ML Syringe IVPUSH ONE (17:03)
[2018-07-25 17:07] LABS: ANION GAP 13.5; CHLORIDE,CL 105 mmol/L (101-111); SODIUM,NA 137 mmol/L (135-145)
--- NOTE | 2018-07-25 17:33 | CR ---
Clinical history: 42-year-old female chest pain. Dilatation: Single upright AP portable chest film unremarkable (external quality assurance monitor leads). *No acute new cardiopulmonary abnormality identified in the interval since 03 June 2017. No lung mass or hilar lymphadenopathy. No infiltrate, atelectasis or lobar collapse. Normal cardiac silhouette. No cephalization of flow and no new signs of alveolar edema or dependent pleural fluid accumulation. No pneumothorax.
[2018-07-25] MEDS ORDERED: Ondansetron 4 MG/2 ML SDV IV ONE (18:11)
--- NOTE | 2018-07-25 18:36 | EDM.PDOC ---
Scribed by Abby Chery 07/25/18 [id number] for Tarik Whittaker PA ED HPI GENERAL MEDICAL PROBLEM - General Chief Complaint: Chest Pain Stated Complaint: AMBULANCE Time Seen by Provider: 07/25/18 16:55 Source of Information: Reports: Patient, EMS, EMS Notes Reviewed, RN, RN Notes Reviewed History Limitations: Reports: No Limitations - History of Present Illness INITIAL COMMENTS - FREE TEXT/NARRATIVE: Patient presents to ER by [facility] with chest pain that started this a.m. She has a tightening pressure that radiates to her right jaw. Patient reports pain comes and goes but has been getting worse. Patient tool Tylenol this a.m. with some relief. Patient has had similar symptoms in the past, 2 years ago. She was transferred to [place] but had no follow-up. Onset: Today Duration: Getting Worse Location: Reports: Chest Quality: Reports: Ache Severity: Moderate Improves with: Reports: None Worsens with: Reports: None Associated Symptoms: Reports: No Other Symptoms Chest Pain Score (Numeric/FACES): 8 - Related Data Allergies Allergy/AdvReac Type Severity Reaction Status Date / Time aspirin Allergy Hives Verified 07/25/18 16:45 cefaclor [From Ceclor] Allergy Other Verified 07/25/18 16:45 Penicillins Allergy Cannot Verified 07/25/18 16:45 Remember sulfamethoxazole Allergy Cannot Verified 07/25/18 16:45 Remember trimethoprim Allergy Cannot Verified 07/25/18 16:45 Remember promethazine AdvReac Confusion Verified 07/25/18 16:45 Home Meds: Home Meds Calcium Carbonate [Tums] 500 mg PO Q2H PRN tab.chew 04/13/17 [Rx] Ferrous Sulfate 325 mg PO BIDMEALS tablet 04/13/17 [Rx] Folic Acid 1 mg PO BEDTIME tablet 04/13/17 [Rx] Nitroglycerin [Nitrostat] 0.4 mg SL ASDIRECTED 04/24/17 [History] Pantoprazole [ProTONIX] 40 mg PO BEDTIME 04/24/17 [History] Acetaminophen [Tylenol] 650 mg PO Q4H PRN 07/06/17 [History] ClonazePAM [KlonoPIN] 0.5 mg PO TID PRN 07/06/17 [History] Ibuprofen 400 mg PO Q4HR PRN 07/25/18 [History] Past Medical History - Past Health History Medical/Surgical History: Denies Medical/Surgical History Cardiovascular History: Reports: Angina Respiratory History: Reports: Asthma, Sleep Apnea Gastrointestinal History: Reports: GERD, Other (See Below) Other Gastrointestinal History: HX OF GASTROENTERITIS Genitourinary History: Reports: None 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 Psychiatric History: Reports: Anxiety, Panic Attack Endocrine/Metabolic History: Reports: Hyperthyroidism Hematologic History: Reports: Anemia, Iron Deficiency, Other (See Below) Other Hematologic History: RETIREMENT USE OF SYSTEMIC STEROIDS - Past Surgical History GI Surgical History: Reports: Cholecystectomy Female Surgical History: Reports: Section, Other (See Below) Other Female Surgeries/Procedures: COLPOSCOPY Social & Family History - Family History Family Medical History: Noncontributory - Caffeine Use Caffeine Use: Reports: None - Living Situation & Occupation Living situation: Reports: , with Family Occupation: Employed ED ROS GENERAL - Review of Systems Review Of Systems: ROS reveals no pertinent complaints other than HPI. ED EXAM, GENERAL - Physical Exam Exam: See Below Exam Limited By: No Limitations General Appearance: Anxious Eye Exam: Bilateral Eye: EOMI, Normal Inspection, PERRL Ears: Normal External Exam, Normal Canal, Hearing Grossly Normal, Normal TMs Nose: Normal Inspection, Normal Mucosa, No Blood Throat/Mouth: Normal Inspection, Normal Lips, Normal Teeth, Normal Gums, Normal Oropharynx, Normal Voice, No Airway Compromise Head: Atraumatic, Normocephalic Neck: Normal Inspection, Supple, Non-Tender, Full Range of Motion Respiratory/Chest: Other (sternal chest pain) Cardiovascular: Normal Peripheral Pulses, Regular Rate, Rhythm, No Edema, No Gallop, No JVD, No Murmur, No Rub GI/Abdominal: Normal Bowel Sounds, Soft, Non-Tender, No Organomegaly, No Distention, No Abnormal Bruit, No Mass (Female) Exam: Deferred Rectal (Female) Exam: Deferred Back Exam: Normal Inspection, Full Range of Motion, NT Extremities: Normal Inspection, Normal Range of Motion, Non-Tender, Normal Capillary Refill, No Pedal Edema Neurological: Alert, Oriented, CN II-XII Intact, Normal Cognition, Normal Gait, Normal Reflexes, No Motor/Sensory Deficits Psychiatric: Normal Affect, Normal Mood Skin Exam: Warm, Dry, Intact, Normal Color, No Rash Lymphatic: No Adenopathy Course - Vital Signs Last Recorded V/S: Last Vital Signs Temp 37.5 C 07/25/18 16:48 Pulse 81 07/25/18 16:48 Resp 12 07/25/18 16:48 BP 123/61 07/25/18 16:48 Pulse Ox 100 07/25/18 16:48 - Orders/Labs/Meds Orders: Active Orders 24 hr Category Date Time Status EKG Documentation Completion [RC] URGENT Care 07/25/18 16:45 Active Labs: Laboratory Tests 07/25/18 07/25/18 07/25/18 Range/Units 16:42 16:42 16:42 WBC 6.0 (5.0-10.0) 10^3/uL RBC 4.36 (4.2-5.4) 10^6/uL Hgb 9.8 L (12.0-16.0) g/dL Hct 32.6 L (37.0-47.0) % MCV 74.8 L (80-100) fL MCH 22.5 L (27.0-34.0) pg MCHC 30.1 L (33.0-35.0) g/dL Plt Count 315 (150-450) 10^3/uL Neut % (Auto) 64.0 (42.2-75.2) % Lymph % (Auto) 27.6 (20.5-50.1) % [place] % (Auto) 8.2 H (2-8) % Eos % (Auto) 0.0 L (1.0-3.0) % Baso % (Auto) 0.2 (0.0-1.0) % D-Dimer, Quantitative 117 (0-400) ng/mL Sodium 137 (135-145) mmol/L Potassium 3.5 L (3.6-5.0) mmol/L Chloride 105 (101-111) mmol/L Carbon Dioxide 22.0 (21.0-31.0) mmol/L Anion Gap 13.5 BUN 14 (7-18) mg/dL Creatinine 0.6 (0.6-1.3) mg/dL Est Cr Clr Drug Dosing 113.18 mL/min Estimated GFR (MDRD) > 60 BUN/Creatinine Ratio 23.33 Glucose 91 (74-105) mg/dL Calcium 9.0 (8.4-10.2) mg/dl Total Bilirubin 0.6 (0.2-1.0) mg/dL AST 22 (10-42) IU/L ALT 20 (10-60) IU/L Alkaline Phosphatase 96 (42-121) IU/L Troponin I < 0.02 (0.00-0.02) ng/ml Total Protein 8.2 (6.7-8.2) g/dl Albumin 4.0 (3.2-5.5) g/dl Globulin 4.2 Albumin/Globulin Ratio 0.95 Meds: Medications Discontinued Medications Generic Name Dose Route Start Last Admin Trade Name Terryq PRN Reason Stop Dose Admin Morphine Sulfate 2 mg 07/25/18 17:03 07/25/18 17:06 Morphine IVPUSH 07/25/18 17:04 2 mg ONETIME ONE Administration Ondansetron HCl 4 mg 07/25/18 18:11 07/25/18 18:14 Zofran IV 07/25/18 18:12 4 mg ONETIME ONE Administration Departure - Departure Time of Disposition: 18:33 Disposition: Home, Self-Care 01 Condition: Fair Clinical Impression: Nonspecific chest pain, Costochondritis Instructions: Nonspecific Chest Pain, [id number], Costochondritis, Easy-to- Read Forms: ED Department Discharge Care Plan Goals: The patient was advised of the examination, lab, x-ray and EKG results during the visit. The patient was encouraged to continue to monitor her symptoms. The patient may take Tylenol or ibuprofen as directed for temporary symptom relief. If the patient has any additional symptoms or concerns, the patient should either visit her primary care facility or return to the emergency department. - My Orders Last 24 Hours: My Active Orders 07/25/18 16:45 EKG Documentation Completion [RC] URGENT - Assessment/Plan Last 24 Hours: My Active Orders 07/25/18 16:45 EKG Documentation Completion [RC] URGENT I have read and agree with the documentation that has been completed regarding this visit. By signing this record, I attest that the documentation was completed in my physical presence and is an accurate record of the encounter.
== END 2018-07-25 18:41 | disposition home or self-care (01) ==
LOC: DL.ED 16:53
DX: M94.0 Chondrocostal junction syndrome [Tietze] (principal); R07.9 Chest pain, unspecified; J45.909 Unspecified asthma, uncomplicated; F41.9 Anxiety disorder, unspecified; K21.9 Gastro-esophageal reflux disease without esophagitis; Z88.8 Allergy status to other drugs, medicaments and biological substances; Z79.899 Other long term (current) drug therapy; Z88.0 Allergy status to penicillin
CPT/HCPCS: 36415; 71045; 80053; 84484; 85025; 85379; 93005; 96374; 96375; 99285; J2270; J2405

== ENCOUNTER 2019-06-18 18:42 | Emergency (ER) | payer OTHER ==
--- NOTE | 2019-06-18 19:27 | EDM.PDOC ---
"ED HPI GENERAL MEDICAL PROBLEM - General Chief Complaint: Abdominal Pain Stated Complaint: VOMIT STOMACH HURTS AND LEG HURTS Time Seen by Provider: 06/18/19 19:10 Source of Information: Reports: Patient History Limitations: Reports: No Limitations - History of Present Illness INITIAL COMMENTS - FREE TEXT/NARRATIVE: This 43 yo female patient reports to the ED with right upper quadrant abdominal pain that started this afternoon. The patient reports she has been fine all day until her current symptoms started. The patient reports her pain started in her right upper quadrant then radiated down the right side of her abdomen. The patient also reports she currently feels bloated and her stomach is distended. The patient reports she has had her gallbladder removed and has had c-sections, but no additional abdominal surgeries. The patient reports no problems urinating. 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 (At 1400, prior to symptoms starting) Right Upper Abdomen Pain Score (Numeric/FACES): 9 - Related Data Allergies Allergy/AdvReac Type Severity Reaction Status Date / Time aspirin Allergy Hives Verified 06/18/19 19:06 cefaclor [From Ceclor] Allergy Other Verified 06/18/19 19:06 Penicillins Allergy Cannot Verified 06/18/19 19:06 Remember sulfamethoxazole Allergy Cannot Verified 06/18/19 19:06 Remember trimethoprim Allergy Cannot Verified 06/18/19 19:06 Remember promethazine AdvReac Confusion Verified 06/18/19 19:06 Home Meds: Home Meds Calcium Carbonate [Tums] 500 mg PO Q2H PRN tab.chew 04/13/17 [Rx] Ferrous Sulfate 325 mg PO BIDMEALS tablet 04/13/17 [Rx] Folic Acid 1 mg PO BEDTIME tablet 04/13/17 [Rx] Nitroglycerin [Nitrostat] 0.4 mg SL ASDIRECTED 04/24/17 [History] Pantoprazole [ProTONIX] 40 mg PO BEDTIME 04/24/17 [History] Acetaminophen [Tylenol] 650 mg PO Q4H PRN 07/06/17 [History] ClonazePAM [KlonoPIN] 0.5 mg PO TID PRN 07/06/17 [History] Ibuprofen 400 mg PO Q4HR PRN 07/25/18 [History] Past Medical History - Past Health History Medical/Surgical History: Denies Medical/Surgical History HEENT History: Reports: Impaired Vision Cardiovascular History: Reports: Angina Respiratory History: Reports: Asthma, Sleep Apnea Gastrointestinal History: Reports: GERD, Other (See Below) Other Gastrointestinal History: HX OF GASTROENTERITIS Genitourinary History: Reports: None 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[employer] x[employer] Psychiatric History: Reports: Anxiety, Panic Attack Endocrine/Metabolic History: Reports: Hyperthyroidism Hematologic History: Reports: Anemia, Iron Deficiency, Other (See Below) Other Hematologic History: SKILLED NURSING USE OF SYSTEMIC STEROIDS - Past Surgical History GI Surgical History: Reports: Cholecystectomy Female Surgical History: Reports: Section, Other (See Below) Other Female Surgeries/Procedures: COLPOSCOPY Social & Family History - Family History Family Medical History: Noncontributory - Tobacco Use Smoking Status *Q: Never Smoker - Caffeine Use Caffeine Use: Reports: Soda - Recreational Drug Use Recreational Drug Use: No - Living Situation & Occupation Living situation: Reports: , with Family Occupation: Employed ED ROS GENERAL - Review of Systems Review Of Systems: Comprehensive ROS is negative, except as noted in HPI. ED EXAM, GI/ABD - Physical Exam Exam: See Below Exam Limited By: No Limitations General Appearance: Alert, WD/WN, Moderate Distress Eyes: Bilateral: Normal Appearance, EOMI Ears: Normal External Exam, Normal Canal, Hearing Grossly Normal, Normal TMs Nose: Normal Inspection, Normal Mucosa, No Blood Throat/Mouth: Normal Inspection, Normal Lips, Normal Teeth, Normal Gums, Normal Oropharynx, Normal Voice, No Airway Compromise Head: Atraumatic, Normocephalic Neck: Normal Inspection, Supple, Non-Tender, Full Range of Motion Respiratory/Chest: No Respiratory Distress, Lungs Clear, Normal Breath Sounds, No Accessory Muscle Use, Chest Non-Tender Cardiovascular: Normal Peripheral Pulses, Regular Rate, Rhythm, No Edema, No Gallop, No JVD, No Murmur, No Rub GI/Abdominal Exam: Normal Bowel Sounds, No Abnormal Bruit, No Mass, Pelvis Stable, Distended, Tender (diffuse tenderness increased in right upper quadrant) (Female) Exam: Deferred Rectal (Female) Exam: Deferred Back Exam: Normal Inspection, Full Range of Motion, NT Extremities: Normal Inspection, Normal Range of Motion, Non-Tender, Normal Capillary Refill, No Pedal Edema Neurological: Alert, Oriented, CN II-XII Intact, Normal Cognition, Normal Gait, Normal Reflexes, No Motor/Sensory Deficits Psychiatric: Normal Affect, Normal Mood Skin Exam: Warm, Dry, Intact, Normal Color, No Rash Lymphatic: No Adenopathy Course - Vital Signs Last Recorded V/S: Last Vital Signs Temp 35.8 C L 06/18/19 21:40 Pulse 79 06/18/19 21:40 Resp 18 06/18/19 21:40 BP 108/62 06/18/19 21:40 Pulse Ox 96 06/18/19 21:40 - Orders/Labs/Meds Orders: Active Orders 24 hr Category Date Time Status Abdomen Pelvis w Cont [CT] Urgent Exams 06/18/19 20:58 Ordered CULTURE BLOOD [BC] Stat Lab 06/18/19 19:14 Ordered Labs: Laboratory Tests 06/18/19 06/18/19 06/18/19 Range/Units 19:20 19:20 19:20 WBC 13.3 H (5.0-10.0) 10^3/uL RBC 4.12 L (4.2-5.4) 10^6/uL Hgb 9.1 L (12.0-16.0) g/dL Hct 30.6 L (37.0-47.0) % MCV 74.3 L (80-100) fL MCH 22.1 L (27.0-34.0) pg MCHC 29.7 L (33.0-35.0) g/dL Plt Count 369 (150-450) 10^3/uL Neut % (Auto) 84.0 H (42.2-75.2) % Lymph % (Auto) 11.6 L (20.5-50.1) % [place] % (Auto) 4.1 (2-8) % Eos % (Auto) 0.2 L (1.0-3.0) % Baso % (Auto) 0.1 (0.0-1.0) % Sodium (135-145) mmol/L Potassium (3.6-5.0) mmol/L Chloride (101-111) mmol/L Carbon Dioxide (21.0-31.0) mmol/L Anion Gap BUN (7-18) mg/dL Creatinine (0.6-1.3) mg/dL Est Cr Clr Drug Dosing mL/min Estimated GFR (MDRD) BUN/Creatinine Ratio Glucose (74-105) mg/dL Lactic Acid 1.2 (0.5-2.0) mmol/L Calcium (8.4-10.2) mg/dl Magnesium 1.7 L (1.8-2.5) mg/dL Total Bilirubin (0.2-1.0) mg/dL AST (10-42) IU/L ALT (10-60) IU/L Alkaline Phosphatase (42-121) IU/L Total Protein (6.7-8.2) g/dl Albumin (3.2-5.5) g/dl Globulin Albumin/Globulin Ratio Amylase 34 (28-100) U/L Lipase 29 (22-51) U/L Urine Color (YELLOW) Urine Appearance (CLEAR) Urine pH (5.0-9.0) Ur Specific [place] (1.005-1.030) Urine Protein (NEGATIVE) Urine Glucose (UA) (NEGATIVE) Urine Ketones (NEGATIVE) Urine Occult Blood (NEGATIVE) Urine Nitrite (NEGATIVE) Urine Bilirubin (NEGATIVE) Urine Urobilinogen (0.2-1.0) mg/dL Ur Leukocyte Esterase (NEGATIVE) Urine HCG, Qual Urine Opiates Screen (NEGATIVE) Ur Oxycodone Screen (NEGATIVE) Urine Methadone Screen (NEGATIVE) Acetaminophen < 10 ug/mL Ur Barbiturates Screen (NEGATIVE) U Tricyclic Antidepress (NEGATIVE) Ur Phencyclidine Scrn (NEGATIVE) Ur Amphetamine Screen (NEGATIVE) U Methamphetamines Scrn (NEGATIVE) Urine MDMA Screen (NEGATIVE) U Benzodiazepines Scrn (NEGATIVE) Urine Cocaine Screen (NEGATIVE) U Marijuana (THC) Screen (NEGATIVE) 06/18/19 06/18/19 06/18/19 Range/Units 19:20 20:19 20:19 WBC (5.0-10.0) 10^3/uL RBC (4.2-5.4) 10^6/uL Hgb (12.0-16.0) g/dL Hct (37.0-47.0) % MCV (80-100) fL MCH (27.0-34.0) pg MCHC (33.0-35.0) g/dL Plt Count (150-450) 10^3/uL Neut % (Auto) (42.2-75.2) % Lymph % (Auto) (20.5-50.1) % [place] % (Auto) (2-8) % Eos % (Auto) (1.0-3.0) % Baso % (Auto) (0.0-1.0) % Sodium 136 (135-145) mmol/L Potassium 3.3 L (3.6-5.0) mmol/L Chloride 102 (101-111) mmol/L Carbon Dioxide 24.0 (21.0-31.0) mmol/L Anion Gap 13.3 BUN 12 (7-18) mg/dL Creatinine 0.5 L (0.6-1.3) mg/dL Est Cr Clr Drug Dosing 118.77 mL/min Estimated GFR (MDRD) > 60 BUN/Creatinine Ratio 24.00 Glucose 86 (74-105) mg/dL Lactic Acid (0.5-2.0) mmol/L Calcium 8.5 (8.4-10.2) mg/dl Magnesium (1.8-2.5) mg/dL Total Bilirubin 0.6 (0.2-1.0) mg/dL AST 15 (10-42) IU/L ALT 16 (10-60) IU/L Alkaline Phosphatase 91 (42-121) IU/L Total Protein 7.6 (6.7-8.2) g/dl Albumin 3.8 (3.2-5.5) g/dl Globulin 3.8 Albumin/Globulin Ratio 1.00 Amylase (28-100) U/L Lipase (22-51) U/L Urine Color Yellow (YELLOW) Urine Appearance Slightly cloudy (CLEAR) Urine pH 5.5 (5.0-9.0) Ur Specific [place] >= 1.030 (1.005-1.030) Urine Protein Negative (NEGATIVE) Urine Glucose (UA) Negative (NEGATIVE) Urine Ketones Negative (NEGATIVE) Urine Occult Blood Negative (NEGATIVE) Urine Nitrite Negative (NEGATIVE) Urine Bilirubin Negative (NEGATIVE) Urine Urobilinogen 1.0 (0.2-1.0) mg/dL Ur Leukocyte Esterase Negative (NEGATIVE) Urine HCG, Qual Negative Urine Opiates Screen (NEGATIVE) Ur Oxycodone Screen (NEGATIVE) Urine Methadone Screen (NEGATIVE) Acetaminophen ug/mL Ur Barbiturates Screen (NEGATIVE) U Tricyclic Antidepress (NEGATIVE) Ur Phencyclidine Scrn (NEGATIVE) Ur Amphetamine Screen (NEGATIVE) U Methamphetamines Scrn (NEGATIVE) Urine MDMA Screen (NEGATIVE) U Benzodiazepines Scrn (NEGATIVE) Urine Cocaine Screen (NEGATIVE) U Marijuana (THC) Screen (NEGATIVE) 06/18/19 Range/Units 20:19 WBC (5.0-10.0) 10^3/uL RBC (4.2-5.4) 10^6/uL Hgb (12.0-16.0) g/dL Hct (37.0-47.0) % MCV (80-100) fL MCH (27.0-34.0) pg MCHC (33.0-35.0) g/dL Plt Count (150-450) 10^3/uL Neut % (Auto) (42.2-75.2) % Lymph % (Auto) (20.5-50.1) % [place] % (Auto) (2-8) % Eos % (Auto) (1.0-3.0) % Baso % (Auto) (0.0-1.0) % Sodium (135-145) mmol/L Potassium (3.6-5.0) mmol/L Chloride (101-111) mmol/L Carbon Dioxide (21.0-31.0) mmol/L Anion Gap BUN (7-18) mg/dL Creatinine (0.6-1.3) mg/dL Est Cr Clr Drug Dosing mL/min Estimated GFR (MDRD) BUN/Creatinine Ratio Glucose (74-105) mg/dL Lactic Acid (0.5-2.0) mmol/L Calcium (8.4-10.2) mg/dl Magnesium (1.8-2.5) mg/dL Total Bilirubin (0.2-1.0) mg/dL AST (10-42) IU/L ALT (10-60) IU/L Alkaline Phosphatase (42-121) IU/L Total Protein (6.7-8.2) g/dl Albumin (3.2-5.5) g/dl Globulin Albumin/Globulin Ratio Amylase (28-100) U/L Lipase (22-51) U/L Urine Color (YELLOW) Urine Appearance (CLEAR) Urine pH (5.0-9.0) Ur Specific [place] (1.005-1.030) Urine Protein (NEGATIVE) Urine Glucose (UA) (NEGATIVE) Urine Ketones (NEGATIVE) Urine Occult Blood (NEGATIVE) Urine Nitrite (NEGATIVE) Urine Bilirubin (NEGATIVE) Urine Urobilinogen (0.2-1.0) mg/dL Ur Leukocyte Esterase (NEGATIVE) Urine HCG, Qual Urine Opiates Screen Negative (NEGATIVE) Ur Oxycodone Screen Negative (NEGATIVE) Urine Methadone Screen Negative (NEGATIVE) Acetaminophen ug/mL Ur Barbiturates Screen Negative (NEGATIVE) U Tricyclic Antidepress Negative (NEGATIVE) Ur Phencyclidine Scrn Negative (NEGATIVE) Ur Amphetamine Screen Negative (NEGATIVE) U Methamphetamines Scrn Negative (NEGATIVE) Urine MDMA Screen Negative (NEGATIVE) U Benzodiazepines Scrn Negative (NEGATIVE) Urine Cocaine Screen Negative (NEGATIVE) U Marijuana (THC) Screen Negative (NEGATIVE) Meds: Medications Discontinued Medications Generic Name Dose Route Start Last Admin Trade Name Freq PRN Reason Stop Dose Admin Hydromorphone HCl 0.5 mg 06/18/19 20:56 06/18/19 21:04 Dilaudid IVPUSH 06/18/19 20:57 0.5 mg ONETIME ONE Administration Iopamidol 100 ml 06/18/19 20:58 06/18/19 21:41 Isovue-300 (61%) IVPUSH 06/18/19 20:59 75 ml ONETIME ONE Administration - Radiology Interpretation Free Text/Narrative:: PROCEDURE INFORMATION: Exam: CT Abdomen And Pelvis With Contrast Exam date and time: 06/18/2019 9:31 PM Age: 43 years old Clinical indication: Abdominal pain; Patient HX: Right sided abd pain TECHNIQUE: Imaging protocol: Computed tomography of the abdomen and pelvis with intravenous contrast. Radiation optimization: All CT scans at this facility use at least one of these dose optimization techniques: automated exposure control; mA and/or kV adjustment per patient size (includes targeted exams where dose is matched to clinical indication); or iterative reconstruction. Contrast material: ISOVUE 300; Contrast volume: 75 ml; Contrast route: IV; COMPARISON: CT Abdomen w Cont 04/12/2017 11:51 AM FINDINGS: Lungs: There are no suspicious pulmonary nodules or areas of lung consolidation. Liver: The liver is normal in architecture, without suspicious abnormality. Gallbladder and bile ducts: The gallbladder is surgically absent.There is dilation of intra-hepatic ducts and the common bile duct, probably physiologic post-cholecystectomy. Pancreas: The pancreatic parenchyma is normal in bulk and sharply marginated. Duct is not dilated. No calcifications, masses, or abnormal fluid collections. Spleen: Spleen is normal in size. No mass or fluid collection. Adrenals: There are no adrenal masses. Kidneys and ureters: Normal in parenchymal bulk. No hydronephrosis or asymmetric perinephric stranding. No solid masses. No stones. Stomach and bowel: No significant abnormalities of the stomach. There are no dilated or thickened small bowel loops. Gas and stool of appropriate quantities are seen in the colon. No mass. KRISTINA MACEDO | Final Radiology Report CONFIDENTIALITY STATEMENT This report is intended only for use by the referring physician, and only in accordance with law. If you received this in error, call [phone]. Page 2 of 2 Appendix: The appendix is seen. It is normal. Intraperitoneal space: No ascites. No abscess. No inflammation within the intra- abdominal fat. No pneumoperitoneum. No mass. Vasculature: Unremarkable. No abdominal aortic aneurysm. Lymph nodes: There are no enlarged celiac, mesenteric, periportal, extraperitoneal or inguinal lymph nodes. Bladder: Unremarkable as visualized. Reproductive: The uterus within normal limits. 2.5 cm simple cyst right ovary consistent with benign functional cyst, requiring no further workup. There are no suspicious adenexal masses. An intrauterine device is present within the confines of the uterine contour. Bones/joints: Age appropriate. No acute fracture. No dislocation. Soft tissues: See Intraperitoneal Space Finding. IMPRESSION: 2.5 cm simple cyst right ovary consistent with benign functional cyst, requiring no further workup. No acute findings. No significant change noted. Thank you for allowing us to participate in the care of your patient. Dictated and Authenticated by: Maldonado Mclaughlin MD 06/18/2019 10:13 PM Central Time ([place] & [place]) Departure - Departure Time of Disposition: 22:38 Disposition: Home, Self-Care 01 Condition: Fair Clinical Impression: Right ovarian cyst Constipation Qualifiers: Constipation type: unspecified constipation type Qualified Code(s): K59.00 - Constipation, unspecified - Discharge Information *PRESCRIPTION DRUG MONITORING PROGRAM REVIEWED*: Not Applicable *COPY OF PRESCRIPTION DRUG MONITORING REPORT IN PATIENT ELLIOT: Not Applicable Instructions: Constipation, Adult, [id number], Ovarian Cyst, [id number] Forms: ED Department Discharge Care Plan Goals: The patient was advised of the examination, lab and CT results during the visit. The patient was given a dose of IV pain medication during the visit. The patient was encouraged to continue to be active. The patient may take Tylenol or ibuprofen as directed for temporary symptom relief. If the patient has any additional symptoms or concerns, the patient should either visit her primary care facility or return to the emergency department. Sepsis Event Note - Evaluation Sepsis Screening Result: No Definite Risk - Focused Exam Vital Signs: Vital Signs Temp Pulse Resp BP Pulse Ox 06/18/19 21:40 35.8 C L 79 18 108/62 96 06/18/19 18:53 35.8 C L 90 19 145/78 H 100 Date Exam was Performed: 06/18/19 Time Exam was Performed: 22:37 - My Orders Last 24 Hours: My Active Orders 06/18/19 19:14 CULTURE BLOOD [BC] Stat 06/18/19 20:58 Abdomen Pelvis w Cont [CT] Urgent - Assessment/Plan Last 24 Hours: My Active Orders 06/18/19 19:14 CULTURE BLOOD [BC] Stat 06/18/19 20:58 Abdomen Pelvis w Cont [CT] Urgent"
[2019-06-18 20:07] LABS: ANION GAP 13.3; CHLORIDE,CL 102 mmol/L (101-111); SODIUM,NA 136 mmol/L (135-145)
[2019-06-18 20:10] LABS: ACETAMINOPHEN < 10 ug/mL
[2019-06-18] MEDS ORDERED: HYDROmorphone 0.5 MG/0.5 ML Syringe IVPUSH ONE (20:56)
[2019-06-18] MEDS ORDERED: Iopamidol 612 MG/ML 100 ML Bottle IVPUSH ONE (20:58)
[2019-06-18 21:42] VITALS: BP 108/62; PULSE 79
== END 2019-06-18 22:50 | disposition home or self-care (01) ==
LOC: DL.ED 18:42
DX: N83.201 Unspecified ovarian cyst, right side (principal); K59.00 Constipation, unspecified; K21.9 Gastro-esophageal reflux disease without esophagitis; D64.9 Anemia, unspecified; Z88.0 Allergy status to penicillin; Z88.2 Allergy status to sulfonamides; Z88.8 Allergy status to other drugs, medicaments and biological substances; Z88.6 Allergy status to analgesic agent; Z79.899 Other long term (current) drug therapy; Z90.49 Acquired absence of other specified parts of digestive tract
CPT/HCPCS: 36415; 74177; 80053; 80305; 80307; 81003; 81025; 82150; 83605; 83690; 83735; 85025; 87040; 96374; 99284; J1170; Q9967

== ENCOUNTER 2019-06-19 00:52 | Emergency (ER) | payer OTHER ==
[2019-06-19] MEDS ORDERED: HYDROmorphone 0.5 MG/0.5 ML Syringe IVPUSH ONE ×2 (01:39→05:33)
--- NOTE | 2019-06-19 02:06 | EDM.PDOC ---
<Chevy Matos - Last Filed: 06/19/19 08:39> ED HPI GENERAL MEDICAL PROBLEM - General Chief Complaint: Abdominal Pain Time Seen by Provider: 06/19/19 01:50 - Related Data Allergies Allergy/AdvReac Type Severity Reaction Status Date / Time aspirin Allergy Hives Verified 06/18/19 19:06 cefaclor [From Ceclor] Allergy Other Verified 06/18/19 19:06 Penicillins Allergy Cannot Verified 06/18/19 19:06 Remember sulfamethoxazole Allergy Cannot Verified 06/18/19 19:06 Remember trimethoprim Allergy Cannot Verified 06/18/19 19:06 Remember promethazine AdvReac Confusion Verified 06/18/19 19:06 Home Meds: Home Meds Calcium Carbonate [Tums] 500 mg PO Q2H PRN tab.chew 04/13/17 [Rx] Ferrous Sulfate 325 mg PO BIDMEALS tablet 04/13/17 [Rx] Folic Acid 1 mg PO BEDTIME tablet 04/13/17 [Rx] Nitroglycerin [Nitrostat] 0.4 mg SL ASDIRECTED 04/24/17 [History] Pantoprazole [ProTONIX] 40 mg PO BEDTIME 04/24/17 [History] Acetaminophen [Tylenol] 650 mg PO Q4H PRN 07/06/17 [History] ClonazePAM [KlonoPIN] 0.5 mg PO TID PRN 07/06/17 [History] Ibuprofen 400 mg PO Q4HR PRN 07/25/18 [History] Course - Vital Signs Last Recorded V/S: Last Vital Signs Temp 37.3 C 06/19/19 09:06 Pulse 75 06/19/19 09:06 Resp 16 06/19/19 09:06 BP 101/63 06/19/19 09:06 Pulse Ox 97 06/19/19 09:06 - Orders/Labs/Meds Orders: Active Orders 24 hr Category Date Time Status Blood Glucose Check, Bedside [RC] ONETIME Care 06/19/19 09:33 Active Blood Glucose Check, Bedside [RC] ONETIME Care 06/19/19 09:56 Active EKG 12 Lead [EKG Documentation Completion] [RC] STAT Care 06/19/19 09:33 Active D5 1/2 NS w/ 40 mEq/L KCl 1,000 ml Med 06/19/19 10:15 Active IV ASDIRECTED Sodium Chloride 0.9% [Normal Saline] 1,000 ml Med 06/19/19 09:15 Active IV ASDIRECTED Medication Orders Sodium Chloride (Normal Saline) 1,000 mls @ 999 mls/hr IV ASDIRECTED JUDI Stop: 06/20/19 09:16 Last Admin: 06/19/19 09:10 Dose: 999 mls/hr Potassium Chloride/Dextrose/Sod Cl (D5 1/2 Ns W/ 40 Meq/L Kcl) 1,000 mls @ 150 mls/hr IV ASDIRECTED JUDI Last Admin: 06/19/19 10:47 Dose: 150 mls/hr Labs: Laboratory Tests 06/19/19 06/19/19 06/19/19 Range/Units 09:47 09:47 09:47 WBC 5.0 (5.0-10.0) 10^3/uL RBC 3.82 L (4.2-5.4) 10^6/uL Hgb 8.5 L (12.0-16.0) g/dL Hct 28.6 L (37.0-47.0) % MCV 74.9 L (80-100) fL MCH 22.3 L (27.0-34.0) pg MCHC 29.7 L (33.0-35.0) g/dL Plt Count 339 (150-450) 10^3/uL Neut % (Auto) 55.5 (42.2-75.2) % Lymph % (Auto) 34.9 (20.5-50.1) % Gibson % (Auto) 9.6 H (2-8) % Eos % (Auto) 0.0 L (1.0-3.0) % Baso % (Auto) 0.0 (0.0-1.0) % Sodium 137 (135-145) mmol/L Potassium 3.4 L (3.6-5.0) mmol/L Chloride 105 (101-111) mmol/L Carbon Dioxide 24.0 (21.0-31.0) mmol/L Anion Gap 11.4 BUN 12 (7-18) mg/dL Creatinine 0.5 L (0.6-1.3) mg/dL Est Cr Clr Drug Dosing 118.77 mL/min Estimated GFR (MDRD) > 60 BUN/Creatinine Ratio 24.00 Glucose 82 (74-105) mg/dL Lactic Acid 0.8 (0.5-2.0) mmol/L Calcium 8.2 L (8.4-10.2) mg/dl Total Bilirubin 0.7 (0.2-1.0) mg/dL AST 14 (10-42) IU/L ALT 16 (10-60) IU/L Alkaline Phosphatase 91 (42-121) IU/L Troponin I 0.03 H* (0.00-0.02) ng/ml Total Protein 7.2 (6.7-8.2) g/dl Albumin 3.5 (3.2-5.5) g/dl Globulin 3.7 Albumin/Globulin Ratio 0.95 Meds: Medications Generic Name Dose Route Start Last Admin Trade Name Pk PRN Reason Stop Dose Admin Sodium Chloride 1,000 mls @ 999 mls/hr 06/19/19 09:15 06/19/19 09:10 Normal Saline IV 06/20/19 09:16 999 mls/hr ASDIRECTED JUDI Administration Potassium Chloride/Dextrose/Sod Cl 1,000 mls @ 150 mls/hr 06/19/19 10:15 04/26 10:47 D5 1/2 Ns W/ 40 Meq/L Kcl IV 150 mls/hr ASDIRECTED JUDI Administration Discontinued Medications Generic Name Dose Route Start Last Admin Trade Name Pk PRN Reason Stop Dose Admin Flumazenil 0.2 mg 06/19/19 10:24 06/19/19 10:30 Romazicon IVPUSH 06/19/19 10:25 0.2 mg ONETIME ONE Administration Hydromorphone HCl 0.5 mg 06/19/19 01:39 06/19/19 01:46 Dilaudid IVPUSH 06/19/19 01:40 0.5 mg ONETIME ONE Administration Hydromorphone HCl 0.5 mg 06/19/19 05:33 06/19/19 05:40 Dilaudid IVPUSH 06/19/19 05:34 0.5 mg ONETIME ONE Administration Naloxone HCl 2 mg 06/19/19 09:51 06/19/19 09:52 Narcan IVPUSH 06/19/19 09:52 2 mg ONETIME ONE Administration Naloxone HCl Confirm 06/19/19 09:51 06/19/19 10:48 Narcan Administered 06/19/19 09:52 Not Given Dose 2 mg .ROUTE .STK-MED ONE Ondansetron HCl 4 mg 06/19/19 10:33 06/19/19 10:36 Zofran IV 06/19/19 10:34 4 mg ONETIME ONE Administration - Re-Assessments/Exams Free Text/Narrative Re-Assessment/Exam: 06/19/19 08:39 Dr. Morse evaluated pt in ER room #4, and plans to take pt from ER to surgery in approx. one hour from now. Departure - Departure Time of Disposition: 08:39 (pt to be taken to OR by Dr. Morse) Disposition: DC/Tfer to Acute Hospital 02 Condition: Good Clinical Impression: Altered mental status, Chronic anemia Ventral hernia Qualifiers: Obstruction and gangrene presence: without obstruction or gangrene Qualified Code(s): K43.9 - Ventral hernia without obstruction or gangrene - Discharge Information *PRESCRIPTION DRUG MONITORING PROGRAM REVIEWED*: No *COPY OF PRESCRIPTION DRUG MONITORING REPORT IN PATIENT ELLIOT: Not Applicable Sepsis Event Note - Focused Exam Vital Signs: Vital Signs Temp Pulse Resp BP Pulse Ox 06/19/19 09:06 37.3 C 75 16 101/63 97 Date Exam was Performed: 06/19/19 Time Exam was Performed: 08:39 <Tarik Whittaker - Last Filed: 06/19/19 19:42> ED HPI GENERAL MEDICAL PROBLEM - General Source of Information: Reports: Patient History Limitations: Reports: No Limitations - History of Present Illness INITIAL COMMENTS - FREE TEXT/NARRATIVE: This 43 yo female patient reports to the ED with increased right sided abdominal pain that radiates from the right upper quadrant to the right lower quadrant. The patient was seen in the ED last night with similar symptoms, diagnosed with a ventral wall hernia (via CT), her pain was managed and the patient was discharged. The patient was going to call to make an appointment with Dr. Morse in the morning to schedule a hernia repair. Onset Date: 06/18/19 Duration: Constant Location: Reports: Abdomen (Right sided) Quality: Reports: Ache, Sharp Severity: Moderate Improves with: Reports: None Worsens with: Reports: None Context: Reports: Other Associated Symptoms: Reports: No Other Symptoms Right Middle Abdominal Pain Score (Numeric/FACES): 10 Past Medical History - Past Health History Medical/Surgical History: Denies Medical/Surgical History HEENT History: Reports: Impaired Vision Cardiovascular History: Reports: Angina Respiratory History: Reports: Asthma, Sleep Apnea Gastrointestinal History: Reports: GERD, Other (See Below) Other Gastrointestinal History: HX OF GASTROENTERITIS Genitourinary History: Reports: None 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: Other 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[employer]RICATOR History: Ceserean x4 Psychiatric History: Reports: Anxiety, Panic Attack Endocrine/Metabolic History: Reports: Hyperthyroidism Hematologic History: Reports: Anemia, Iron Deficiency, Other (See Below) Other Hematologic History: SOC[employer]IA [employer]OR USE OF SYSTEMIC STEROIDS - Past Surgical History GI Surgical History: Reports: Cholecystectomy Female Surgical History: Reports: Section, Other (See Below) Other Female Surgeries/Procedures: COLPOSCOPY Social & Family History - Family History Family Medical History: Noncontributory - Tobacco Use Smoking Status *Q: Never Smoker Second Hand Smoke Exposure: No - Caffeine Use Caffeine Use: Reports: Soda - Recreational Drug Use Recreational Drug Use: No - Living Situation & Occupation Living situation: Reports: , with Family Occupation: Employed ED ROS GENERAL - Review of Systems Review Of Systems: Comprehensive ROS is negative, except as noted in HPI. ED EXAM, GI/ABD - Physical Exam Exam: See Below Exam Limited By: No Limitations General Appearance: Alert, WD/WN, Severe Distress Eyes: Bilateral: Normal Appearance, EOMI Ears: Normal External Exam, Normal Canal, Hearing Grossly Normal, Normal TMs Nose: Normal Inspection, Normal Mucosa, No Blood Throat/Mouth: Normal Inspection, Normal Lips, Normal Teeth, Normal Gums, Normal Oropharynx, Normal Voice, No Airway Compromise Head: Atraumatic, Normocephalic Neck: Normal Inspection, Supple, Non-Tender, Full Range of Motion Respiratory/Chest: No Respiratory Distress, Lungs Clear, Normal Breath Sounds, No Accessory Muscle Use, Chest Non-Tender GI/Abdominal Exam: Normal Bowel Sounds, No Organomegaly, No Abnormal Bruit, No Mass, Pelvis Stable, Tender (RUQ) (Female) Exam: Deferred Rectal (Female) Exam: Deferred Extremities: Normal Inspection, Normal Range of Motion, Non-Tender, No Pedal Edema, Normal Capillary Refill Neurological: Alert, Oriented, CN II-XII Intact, Normal Cognition, No Motor/ Sensory Deficits Psychiatric: Normal Affect, Normal Mood Skin Exam: Warm, Dry, Intact, Normal Color, No Rash Lymphatic: No Adenopathy Course - Orders/Labs/Meds Orders: Active Orders 24 hr Category Date Time Status Blood Glucose Check, Bedside [RC] ONETIME Care 06/19/19 09:33 Active Blood Glucose Check, Bedside [RC] ONETIME Care 06/19/19 09:56 Active EKG 12 Lead [EKG Documentation Completion] [RC] STAT Care 06/19/19 09:33 Active D5 1/2 NS w/ 40 mEq/L KCl 1,000 ml Med 06/19/19 10:15 Active IV ASDIRECTED Sodium Chloride 0.9% [Normal Saline] 1,000 ml Med 06/19/19 09:15 Active IV ASDIRECTED Medication Orders Sodium Chloride (Normal Saline) 1,000 mls @ 999 mls/hr IV ASDIRECTED JUDI Stop: 06/20/19 09:16 Last Admin: 06/19/19 09:10 Dose: 999 mls/hr Potassium Chloride/Dextrose/Sod Cl (D5 1/2 Ns W/ 40 Meq/L Kcl) 1,000 mls @ 150 mls/hr IV ASDIRECTED JUDI Last Admin: 06/19/19 10:47 Dose: 150 mls/hr Labs: Laboratory Tests 06/19/19 06/19/19 06/19/19 Range/Units 09:47 09:47 09:47 WBC 5.0 (5.0-10.0) 10^3/uL RBC 3.82 L (4.2-5.4) 10^6/uL Hgb 8.5 L (12.0-16.0) g/dL Hct 28.6 L (37.0-47.0) % MCV 74.9 L (80-100) fL MCH 22.3 L (27.0-34.0) pg MCHC 29.7 L (33.0-35.0) g/dL Plt Count 339 (150-450) 10^3/uL Neut % (Auto) 55.5 (42.2-75.2) % Lymph % (Auto) 34.9 (20.5-50.1) % Gibson % (Auto) 9.6 H (2-8) % Eos % (Auto) 0.0 L (1.0-3.0) % Baso % (Auto) 0.0 (0.0-1.0) % Sodium 137 (135-145) mmol/L Potassium 3.4 L (3.6-5.0) mmol/L Chloride 105 (101-111) mmol/L Carbon Dioxide 24.0 (21.0-31.0) mmol/L Anion Gap 11.4 BUN 12 (7-18) mg/dL Creatinine 0.5 L (0.6-1.3) mg/dL Est Cr Clr Drug Dosing 118.77 mL/min Estimated GFR (MDRD) > 60 BUN/Creatinine Ratio 24.00 Glucose 82 (74-105) mg/dL Lactic Acid 0.8 (0.5-2.0) mmol/L Calcium 8.2 L (8.4-10.2) mg/dl Total Bilirubin 0.7 (0.2-1.0) mg/dL AST 14 (10-42) IU/L ALT 16 (10-60) IU/L Alkaline Phosphatase 91 (42-121) IU/L Troponin I 0.03 H* (0.00-0.02) ng/ml Total Protein 7.2 (6.7-8.2) g/dl Albumin 3.5 (3.2-5.5) g/dl Globulin 3.7 Albumin/Globulin Ratio 0.95 Sepsis Event Note - Evaluation Sepsis Screening Result: No Definite Risk - Focused Exam Date Exam was Performed: 06/19/19 Time Exam was Performed: 19:42
[2019-06-19 09:07] VITALS: BP 101/63; PULSE 75
[2019-06-19] MEDS ORDERED: Sodium Chloride 0.9% 1,000 ML IV SCH (09:15)
--- NOTE | 2019-06-19 09:42 | EDM.PDOC ---
"ED HPI GENERAL MEDICAL PROBLEM - General Chief Complaint: Neurological Problem Stated Complaint: Altered mental status Time Seen by Provider: 06/19/19 01:50 Source of Information: Reports: Patient, Old Records, Provider (Miko MARIN), RN , RN Notes Reviewed History Limitations: Reports: Altered Mental Status - History of Present Illness INITIAL COMMENTS - FREE TEXT/NARRATIVE: This 43 yo female patient reports to the ED with increased right sided abdominal pain that radiates from the right upper quadrant to the right lower quadrant. The patient was seen in the ED last night with similar symptoms, diagnosed with a ventral wall hernia (via CT), her pain was managed and the patient was discharged. The patient was going to call to make an appointment with Dr. Morse in the morning to schedule a hernia repair. Pt had been evaluated by Dr. Morse with plan to go to OR for ventral fat containing hernia. Pt was up to bedside commode, and when she returned to the ER bed she had a brief episode of altered mental status reported by the RN. Unclear if pt had a loss of consciousness or not. The episode lasted less than a minute. I arrived to find the pt supine in the bed, eyes open, and responding appropriately to questions, oriented x3 but drowsy. Pt denied pain or any complaints. She states that she felt very drowsy. BP 117/69, HR 60's SR on telemetry, oxygen sats. 98% on RA. No motor or sensory deficits. TOMAS (Miko) states he will not take pt to OR in this condition, or at this facility and advises the pt should be transferred. However, there is no transfer available by ground or air due to winter weather conditions. Onset: Sudden Onset Date: 06/19/19 Duration: Improving Location: Reports: Generalized Severity: Moderate Improves with: Reports: None Worsens with: Reports: None Context: Reports: Other Associated Symptoms: Reports: No Other Symptoms Right Middle Abdominal Pain Score (Numeric/FACES): 10 - Related Data Allergies Allergy/AdvReac Type Severity Reaction Status Date / Time aspirin Allergy Hives Verified 06/18/19 19:06 cefaclor [From Ceclor] Allergy Other Verified 06/18/19 19:06 Penicillins Allergy Cannot Verified 06/18/19 19:06 Remember sulfamethoxazole Allergy Cannot Verified 06/18/19 19:06 Remember trimethoprim Allergy Cannot Verified 06/18/19 19:06 Remember promethazine AdvReac Confusion Verified 06/18/19 19:06 Home Meds: Home Meds Calcium Carbonate [Tums] 500 mg PO Q2H PRN tab.chew 04/13/17 [Rx] Ferrous Sulfate 325 mg PO BIDMEALS tablet 04/13/17 [Rx] Folic Acid 1 mg PO BEDTIME tablet 04/13/17 [Rx] Nitroglycerin [Nitrostat] 0.4 mg SL ASDIRECTED 04/24/17 [History] Pantoprazole [ProTONIX] 40 mg PO BEDTIME 04/24/17 [History] Acetaminophen [Tylenol] 650 mg PO Q4H PRN 07/06/17 [History] ClonazePAM [KlonoPIN] 0.5 mg PO TID PRN 07/06/17 [History] Ibuprofen 400 mg PO Q4HR PRN 07/25/18 [History] Past Medical History - Past Health History Medical/Surgical History: Denies Medical/Surgical History HEENT History: Reports: Impaired Vision Cardiovascular History: Reports: Angina Respiratory History: Reports: Asthma, Sleep Apnea Gastrointestinal History: Reports: GERD, Other (See Below) Other Gastrointestinal History: HX OF GASTROENTERITIS Genitourinary History: Reports: None 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 CONTACT ASSOCIATE 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: Reports: Other ACCOUNT CONTACT ASSOCIATE History: Ceserean x4 Psychiatric History: Reports: Anxiety, Panic Attack Endocrine/Metabolic History: Reports: Hyperthyroidism Hematologic History: Reports: Anemia, Iron Deficiency, Other (See Below) 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 - Past Surgical History GI Surgical History: Reports: Cholecystectomy Female Surgical History: Reports: Section, Other (See Below) Other Female Surgeries/Procedures: COLPOSCOPY Social & Family History - Family History Family Medical History: Noncontributory - Tobacco Use Smoking Status *Q: Never Smoker Second Hand Smoke Exposure: No - Caffeine Use Caffeine Use: Reports: Soda - Recreational Drug Use Recreational Drug Use: No - Living Situation & Occupation Living situation: Reports: , with Family Occupation: Employed ED ROS GENERAL - Review of Systems Review Of Systems: Comprehensive ROS is negative, except as noted in HPI. ED EXAM, GENERAL - Physical Exam Exam: See Below Free Text/Narrative:: This 43 yo female patient reports to the ED with increased right sided abdominal pain that radiates from the right upper quadrant to the right lower quadrant. The patient was seen in the ED last night with similar symptoms, diagnosed with a ventral wall hernia (via CT), her pain was managed and the patient was discharged. The patient was going to call to make an appointment with Dr. Morse in the morning to schedule a hernia repair. Exam Limited By: Altered Mental Status General Appearance: WD/WN, No Apparent Distress, Lethargic, Obtunded, Other ( Arousable to tactile stimuli, intermittently responds to verbal stimuli. Answers appropriately and oriented when she does respond.) Eye Exam: Bilateral Eye: EOMI, Normal Inspection, PERRL Ears: Normal External Exam, Hearing Grossly Normal Nose: Normal Inspection, Normal Mucosa, No Blood Throat/Mouth: Normal Inspection, Normal Lips, Normal Teeth, Normal Gums, Normal Oropharynx, Normal Voice, No Airway Compromise Head: Atraumatic, Normocephalic Neck: Normal Inspection, Supple, Non-Tender, Full Range of Motion Respiratory/Chest: No Respiratory Distress, Lungs Clear, Normal Breath Sounds, No Accessory Muscle Use, Chest Non-Tender Cardiovascular: Normal Peripheral Pulses, Regular Rate, Rhythm, No Edema, No Gallop, No JVD, No Murmur, No Rub GI/Abdominal: Normal Bowel Sounds, No Organomegaly, No Abnormal Bruit, No Mass, Pelvis Stable, Tender (RUQ) Extremities: Normal Inspection, Normal Range of Motion, Non-Tender, No Pedal Edema, Normal Capillary Refill Neurological: Oriented, CN II-XII Intact, Normal Cognition, No Motor/Sensory Deficits Skin Exam: Warm, Dry, Intact, Normal Color, No Rash EKG INTERPRETATION EKG Date: 06/19/19 Time: 09:38 Rhythm: NSR Rate (Beats/Min): 64 [place]: Normal P-Wave: Present QRS: Normal ST-T: Normal QT: Normal Comparison: No Change Course - Vital Signs Last Recorded V/S: Last Vital Signs Temp 99.2 F 06/19/19 09:06 Pulse 75 06/19/19 09:06 Resp 16 06/19/19 09:06 BP 101/63 06/19/19 09:06 Pulse Ox 97 06/19/19 09:06 - Orders/Labs/Meds Orders: Active Orders 24 hr Category Date Time Status Blood Glucose Check, Bedside [RC] ONETIME Care 06/19/19 09:33 Active Blood Glucose Check, Bedside [RC] ONETIME Care 06/19/19 09:56 Active EKG 12 Lead [EKG Documentation Completion] [RC] STAT Care 06/19/19 09:33 Active Head wo Cont [CT] Stat Exams 06/19/19 09:46 Taken D5 1/2 NS w/ 40 mEq/L KCl 1,000 ml Med 06/19/19 10:15 Active IV ASDIRECTED Sodium Chloride 0.9% [Normal Saline] 1,000 ml Med 06/19/19 09:15 Active IV ASDIRECTED Medication Orders Sodium Chloride (Normal Saline) 1,000 mls @ 999 mls/hr IV ASDIRECTED JUDI Stop: 06/20/19 09:16 Last Admin: 06/19/19 09:10 Dose: 999 mls/hr Potassium Chloride/Dextrose/Sod Cl (D5 1/2 Ns W/ 40 Meq/L Kcl) 1,000 mls @ 150 mls/hr IV ASDIRECTED JUDI Last Admin: 06/19/19 10:47 Dose: 150 mls/hr Labs: Laboratory Tests 06/19/19 06/19/19 06/19/19 Range/Units 09:47 09:47 09:47 WBC 5.0 (5.0-10.0) 10^3/uL RBC 3.82 L (4.2-5.4) 10^6/uL Hgb 8.5 L (12.0-16.0) g/dL Hct 28.6 L (37.0-47.0) % MCV 74.9 L (80-100) fL MCH 22.3 L (27.0-34.0) pg MCHC 29.7 L (33.0-35.0) g/dL Plt Count 339 (150-450) 10^3/uL Neut % (Auto) 55.5 (42.2-75.2) % Lymph % (Auto) 34.9 (20.5-50.1) % [place] % (Auto) 9.6 H (2-8) % Eos % (Auto) 0.0 L (1.0-3.0) % Baso % (Auto) 0.0 (0.0-1.0) % Sodium 137 (135-145) mmol/L Potassium 3.4 L (3.6-5.0) mmol/L Chloride 105 (101-111) mmol/L Carbon Dioxide 24.0 (21.0-31.0) mmol/L Anion Gap 11.4 BUN 12 (7-18) mg/dL Creatinine 0.5 L (0.6-1.3) mg/dL Est Cr Clr Drug Dosing 118.77 mL/min Estimated GFR (MDRD) > 60 BUN/Creatinine Ratio 24.00 Glucose 82 (74-105) mg/dL Lactic Acid 0.8 (0.5-2.0) mmol/L Calcium 8.2 L (8.4-10.2) mg/dl Total Bilirubin 0.7 (0.2-1.0) mg/dL AST 14 (10-42) IU/L ALT 16 (10-60) IU/L Alkaline Phosphatase 91 (42-121) IU/L Troponin I 0.03 H* (0.00-0.02) ng/ml Total Protein 7.2 (6.7-8.2) g/dl Albumin 3.5 (3.2-5.5) g/dl Globulin 3.7 Albumin/Globulin Ratio 0.95 Lab from 06/18/19 ER visit reviewed by me. *Chronic anemia with Hgb 8.2 to 9.5 for >4 years. Meds: Medications Generic Name Dose Route Start Last Admin Trade Name Freq PRN Reason Stop Dose Admin Sodium Chloride 1,000 mls @ 999 mls/hr 06/19/19 09:15 06/19/19 09:10 Normal Saline IV 06/20/19 09:16 999 mls/hr ASDIRECTED JUDI Administration Potassium Chloride/Dextrose/Sod Cl 1,000 mls @ 150 mls/hr 06/19/19 10:15 04/26 10:47 D5 1/2 Ns W/ 40 Meq/L Kcl IV 150 mls/hr ASDIRECTED JUDI Administration Discontinued Medications Generic Name Dose Route Start Last Admin Trade Name Freq PRN Reason Stop Dose Admin Flumazenil 0.2 mg 06/19/19 10:24 06/19/19 10:30 Romazicon IVPUSH 06/19/19 10:25 0.2 mg ONETIME ONE Administration Hydromorphone HCl 0.5 mg 06/19/19 01:39 06/19/19 01:46 Dilaudid IVPUSH 06/19/19 01:40 0.5 mg ONETIME ONE Administration Hydromorphone HCl 0.5 mg 06/19/19 05:33 06/19/19 05:40 Dilaudid IVPUSH 06/19/19 05:34 0.5 mg ONETIME ONE Administration Naloxone HCl 2 mg 06/19/19 09:51 06/19/19 09:52 Narcan IVPUSH 06/19/19 09:52 2 mg ONETIME ONE Administration Naloxone HCl Confirm 06/19/19 09:51 06/19/19 10:48 Narcan Administered 06/19/19 09:52 Not Given Dose 2 mg .ROUTE .STK-MED ONE Ondansetron HCl 4 mg 06/19/19 10:33 06/19/19 10:36 Zofran IV 06/19/19 10:34 4 mg ONETIME ONE Administration - Radiology Interpretation Free Text/Narrative:: [facility] Final Radiology Report Call: [phone] assistance Online chat: [email or web address] Name: KRISTINA MACEDO Age: 43Years F Date: 06/19/2019 SSN: -- : [id number] Study: CT HEAD WO Requesting Physician: TANYA VERA Images: [id number] Addl Studies: Provided Clinical History: patient unresponsive Contrast: Without Contrast Medium: Contrast Amount: Contrast Method: Page 1 of 2 PROCEDURE INFORMATION: Exam: CT Head Without Contrast Exam date and time: 06/19/2019 9:59 AM Age: 43 years old Clinical indication: Altered mental status/memory loss; Confusion or disorientation; Additional info: Patient unresponsive TECHNIQUE: Imaging protocol: Computed tomography of the head without contrast. Radiation optimization: All CT scans at this facility use at least one of these dose optimization techniques: automated exposure control; mA and/or kV adjustment per patient size (includes targeted exams where dose is matched to clinical indication); or iterative reconstruction. Other technique: STROKE PROTOCOL was implemented. COMPARISON: CT Head wo Cont 06/23/2017 5:07 PM FINDINGS: Brain: Normal. No hemorrhage. Unremarkable white matter. No mass effect. Ventricles: Normal. No ventriculomegaly. Bones/joints: Unremarkable. No acute fracture. Sinuses: Visualized sinuses are unremarkable. No fluid levels. Mastoid air cells: Visualized mastoid air cells are well aerated. Soft tissues: Unremarkable. IMPRESSION: No acute intracranial abnormality. ASSESSMENT: ASPECTS ([place] Stroke Program Early CT Score) is 10 KRISTINA MACEDO | Final Radiology Report CONFIDENTIALITY STATEMENT This report is intended only for use by the referring physician, and only in accordance with law. If you received this in error, call [phone]. Page 2 of 2 Thank you for allowing us to participate in the care of your patient. Dictated and Authenticated by: Renita Ferraro MD 06/19/2019 10:06 AM Central Time ([place]) [facility] Final Radiology Report with Addendum Call: [phone] assistance Online chat: [email or web address] Name: KRISTINA MACEDO Age: 43Years F Date: 06/18/2019 SSN: -- : [id number] Study: CT ABDOMEN/PELVIS W Requesting Physician: Tarik Whittaker Images: [id number] Addl Studies: Provided Clinical History: Contrast: With Contrast Medium: isovue 300 Contrast Amount: 75 mL Contrast Method: iv Page 1 of 2 Addendum created by Maldonado Mclaughlin MD on 06/18/2019 11:35 PM Central Time ([place] THIS REPORT CONTAINS FINDINGS THAT MAY BE CRITICAL TO PATIENT CARE. The findings were verbally communicated via telephone conference with BLANE Valdez 11:34 PM [facility] on 06/18/2019. The findings were acknowledged and understood. Addendum created by Maldonado Mclaughlin MD on 06/18/2019 10:46 PM Central Time ([place] Additional finding of note: Right-sided ventral hernia with mild mistiness of the fat it contains. No bowel involvement. There could be incarceration present. Initial Report created on 06/18/2019 10:13 PM Central Time ([place] PROCEDURE INFORMATION: Exam: CT Abdomen And Pelvis With Contrast Exam date and time: 06/18/2019 9:31 PM Age: 43 years old Clinical indication: Abdominal pain; Patient HX: Right sided abd pain TECHNIQUE: Imaging protocol: Computed tomography of the abdomen and pelvis with intravenous contrast. Radiation optimization: All CT scans at this facility use at least one of these dose optimization techniques: automated exposure control; mA and/or kV adjustment per patient size (includes targeted exams where dose is matched to clinical indication); or iterative reconstruction. Contrast material: ISOVUE 300; Contrast volume: 75 ml; Contrast route: IV; COMPARISON: CT Abdomen w Cont 04/12/2017 11:51 AM FINDINGS: KRISTINA MACEDO | Final Radiology Report CONFIDENTIALITY STATEMENT This report is intended only for use by the referring physician, and only in accordance with law. If you received this in error, call [phone]. Page 2 of 2 Lungs: There are no suspicious pulmonary nodules or areas of lung consolidation. Liver: The liver is normal in architecture, without suspicious abnormality. Gallbladder and bile ducts: The gallbladder is surgically absent.There is dilation of intra-hepatic ducts and the common bile duct, probably physiologic post-cholecystectomy. Pancreas: The pancreatic parenchyma is normal in bulk and sharply marginated. Duct is not dilated. No calcifications, masses, or abnormal fluid collections. Spleen: Spleen is normal in size. No mass or fluid collection. Adrenals: There are no adrenal masses. Kidneys and ureters: Normal in parenchymal bulk. No hydronephrosis or asymmetric perinephric stranding. No solid masses. No stones. Stomach and bowel: No significant abnormalities of the stomach. There are no dilated or thickened small bowel loops. Gas and stool of appropriate quantities are seen in the colon. No mass. Appendix: The appendix is seen. It is normal. Intraperitoneal space: No ascites. No abscess. No inflammation within the intra- abdominal fat. No pneumoperitoneum. No mass. Vasculature: Unremarkable. No abdominal aortic aneurysm. Lymph nodes: There are no enlarged celiac, mesenteric, periportal, extraperitoneal or inguinal lymph nodes. Bladder: Unremarkable as visualized. Reproductive: The uterus within normal limits. 2.5 cm simple cyst right ovary consistent with benign functional cyst, requiring no further workup. There are no suspicious adenexal masses. An intrauterine device is present within the confines of the uterine contour. Bones/joints: Age appropriate. No acute fracture. No dislocation. Soft tissues: See Intraperitoneal Space Finding. IMPRESSION: 2.5 cm simple cyst right ovary consistent with benign functional cyst, requiring no further workup. No acute findings. No significant change noted. Thank you for allowing us to participate in the care of your patient. Dictated and Authenticated by: Maldonado Mclaughlin MD 06/18/2019 10:13 PM Central Time ([place] - Re-Assessments/Exams Free Text/Narrative Re-Assessment/Exam: 06/19/19 10:02 No response to Narcan 2mg IVP. 06/19/19 10:30 No response to Romazicon 0.2mg IVP. Departure - Departure Time of Disposition: 10:58 Disposition: DC/Tfer to Acute Hospital 02 Condition: Good Clinical Impression: Chronic anemia Altered mental status Qualifiers: Altered mental status type: somnolence Qualified Code(s): R40.0 - Somnolence Ventral hernia Qualifiers: Obstruction and gangrene presence: without obstruction or gangrene Qualified Code(s): K43.9 - Ventral hernia without obstruction or gangrene - Discharge Information *PRESCRIPTION DRUG MONITORING PROGRAM REVIEWED*: No *COPY OF PRESCRIPTION DRUG MONITORING REPORT IN PATIENT ELLIOT: Not Applicable Sepsis Event Note - Evaluation Sepsis Screening Result: No Definite Risk - Focused Exam Vital Signs: Vital Signs Temp Pulse Resp BP Pulse Ox 06/19/19 09:06 99.2 F 75 16 101/63 97 06/19/19 01:38 97.3 F 76 19 117/64 96 Date Exam was Performed: 06/19/19 Time Exam was Performed: 10:55 - My Orders Last 24 Hours: My Active Orders 06/19/19 09:15 Sodium Chloride 0.9% [Normal Saline] 1,000 ml IV ASDIRECTED 06/19/19 09:33 Blood Glucose Check, Bedside [RC] ONETIME EKG 12 Lead [EKG Documentation Completion] [RC] STAT 06/19/19 09:46 Head wo Cont [CT] Stat 06/19/19 09:56 Blood Glucose Check, Bedside [RC] ONETIME 06/19/19 10:15 D5 1/2 NS w/ 40 mEq/L KCl 1,000 ml IV ASDIRECTED - Assessment/Plan Last 24 Hours: My Active Orders 06/19/19 09:15 Sodium Chloride 0.9% [Normal Saline] 1,000 ml IV ASDIRECTED 06/19/19 09:33 Blood Glucose Check, Bedside [RC] ONETIME EKG 12 Lead [EKG Documentation Completion] [RC] STAT 06/19/19 09:46 Head wo Cont [CT] Stat 06/19/19 09:56 Blood Glucose Check, Bedside [] ONETIME 06/19/19 10:15 D5 1/2 NS w/ 40 mEq/L KCl 1,000 ml IV ASDIRECTED"
[2019-06-19] MEDS ORDERED: Naloxone 2 MG/2 ML Syringe IVPUSH ONE (09:51)
[2019-06-19] MEDS ORDERED: Naloxone 2 MG/2 ML Syringe ONE (09:51)
[2019-06-19 10:15] LABS: ANION GAP 11.4; CHLORIDE,CL 105 mmol/L (101-111); SODIUM,NA 137 mmol/L (135-145)
[2019-06-19] MEDS ORDERED: D5 1/2 NS w/ 40 mEq/L KCl 1,000 ML IV SCH (10:15)
[2019-06-19] MEDS ORDERED: Flumazenil 0.1 MG/ML 5 ML MDV IVPUSH ONE (10:24)
[2019-06-19] MEDS ORDERED: Ondansetron 4 MG/2 ML SDV IV ONE (10:33)
--- NOTE | 2019-06-19 12:43 | HP ---
INTRODUCTION: This 43-year-old female presented to the emergency room with right upper quadrant abdominal pain. She was initially seen and treated with some medication and went home. She reappeared to the emergency room several hours later with still moderate right upper quadrant pain. CT scan did show an incarcerated fat pad and a prior incision which was probably related to her laparoscopic cholecystectomy. She shows no signs of bowel obstruction or intestine within the hernia sac. PAST MEDICAL HISTORY: ALLERGIES: The patient has allergies to aspirin, Ceclor, penicillins, sulfamethoxazole-trimethoprim, and promethazine. CURRENT MEDICATIONS: Protonix, Klonopin, Tums, Tylenol, folic acid, ibuprofen, and iron. PRIOR SURGICAL HISTORY: Includes laparoscopic cholecystectomy and section. FAMILY HISTORY AND SOCIAL HISTORY: The patient is . She works for the [employer]. She does not smoke or use alcohol. REVIEW OF SYSTEMS: Positive for hypertension. All other systems are negative. Cardiovascular: Normal. Respiratory: Normal. PHYSICAL EXAMINATION: HEENT: Normal. The patient wears glasses and sees adequately. Chest: The lungs are clear bilaterally. Heart: Normal sinus rhythm. Abdomen: Tender in the right upper quadrant. There is a palpable mass corresponding to the point on the CAT scan where she has incarcerated fat pad. The rest of the examination in the abdomen is normal. Extremities: Good range of motion. No edema. Neurologic: Grossly intact. ASSESSMENT: Incarcerated incisional hernia. PLAN: I discussed the risks, benefits, and expected outcomes of an open repair of this with her. Currently scheduled to go from the emergency room to the operating room for repair. [facility] /[id number]
== END 2019-06-19 12:00 ==
LOC: DL.SDS 00:52 → DL.ED 00:52 → DL.SDS 08:45
DX: K43.9 Ventral hernia without obstruction or gangrene (principal); K43.2 Incisional hernia without obstruction or gangrene; R41.82 Altered mental status, unspecified; D50.9 Iron deficiency anemia, unspecified; K21.9 Gastro-esophageal reflux disease without esophagitis; F41.0 Panic disorder [episodic paroxysmal anxiety]; Z88.6 Allergy status to analgesic agent; Z88.0 Allergy status to penicillin; Z88.1 Allergy status to other antibiotic agents; Z88.8 Allergy status to other drugs, medicaments and biological substances; Z79.899 Other long term (current) drug therapy
CPT/HCPCS: 36415; 70450; 80053; 82962; 83605; 84484; 85025; 93005; 96361; 96365; 96375; 96376; 99285; J1170; J2310; J2405; J3480; J3490; J7030; 99284

== ENCOUNTER 2020-06-30 15:17 | Emergency (ER) | payer OTHER ==
[2020-06-30] MEDS ORDERED: Acetaminophen 500 MG Tab PO ONE (15:28)
[2020-06-30 15:47] VITALS: BP 112/66; PULSE 72
--- NOTE | 2020-06-30 16:18 | EDM.PDOC ---
<Wilberto Diaz Laura - Last Filed: 06/30/20 17:15> ED HPI GENERAL MEDICAL PROBLEM - General Chief Complaint: General Stated Complaint: AMBULANCE Time Seen by Provider: 06/30/20 16:12 Source of Information: Reports: Patient, RN, RN Notes Reviewed History Limitations: Reports: No Limitations - History of Present Illness INITIAL COMMENTS - FREE TEXT/NARRATIVE: 44 y/o f had her covid vaccination at about 2pm today and about 7 min after the shot she developed a warm feeling in her chest and has vomited normal food particles for four episodes afterwards. Currently pt still feels nauseous and feels the warm sensation in her chest and has a WELLS. Denies vision prob, abd pn, pelvic pain, difficulty voiding. Onset: Today, Sudden Duration: Hour(s): Location: Reports: Chest Quality: Reports: Burning Severity: Mild Improves with: Reports: None Worsens with: Reports: None Headache Pain Score (Numeric/FACES): 8 - Related Data Allergies Allergy/AdvReac Type Severity Reaction Status Date / Time aspirin Allergy Hives Verified 06/30/20 15:23 cefaclor [From Ceclor] Allergy Other Verified 06/30/20 15:23 lidocaine Allergy Hives Verified 06/30/20 15:23 Penicillins Allergy Cannot Verified 06/30/20 15:23 Remember sulfamethoxazole Allergy Cannot Verified 06/30/20 15:23 Remember trimethoprim Allergy Cannot Verified 06/30/20 15:23 Remember promethazine AdvReac Confusion Verified 06/30/20 15:23 Home Meds: Home Meds Calcium Carbonate [Tums] 500 mg PO Q2H PRN tab.chew 04/13/17 [Rx] Nitroglycerin [Nitrostat] 0.4 mg SL ASDIRECTED 04/24/17 [History] Pantoprazole [ProTONIX] 40 mg PO BEDTIME 04/24/17 [History] Acetaminophen [Tylenol] 650 mg PO Q4H PRN 07/06/17 [History] Ibuprofen 400 mg PO Q4HR PRN 07/25/18 [History] Past Medical History - Past Health History Medical/Surgical History: Denies Medical/Surgical History HEENT History: Reports: Impaired Vision Cardiovascular History: Reports: Angina Respiratory History: Reports: Asthma, Sleep Apnea Gastrointestinal History: Reports: GERD, Other (See Below) Other Gastrointestinal History: HX OF GASTROENTERITIS Genitourinary History: Reports: None 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 Psychiatric History: Reports: Anxiety, Panic Attack Endocrine/Metabolic History: Reports: Hyperthyroidism Hematologic History: Reports: Anemia, Iron Deficiency, Other (See Below) Other Hematologic History: NURSE RECRUITER USE OF SYSTEMIC STEROIDS - Infectious Disease History Infectious Disease History: Reports: Novel Coronavirus - Past Surgical History GI Surgical History: Reports: Cholecystectomy Female Surgical History: Reports: Section, Other (See Below) Other Female Surgeries/Procedures: COLPOSCOPY Social & Family History - Family History Family Medical History: No Pertinent Family History - Tobacco Use Tobacco Use Status *Q: Former Tobacco User Used Tobacco, but Quit: Yes Month/Year Tobacco Last Used: 6 months ago - Caffeine Use Caffeine Use: Reports: Soda - Recreational Drug Use Recreational Drug Use: No - Living Situation & Occupation Living situation: Reports: , with Family Occupation: Employed ED ROS GENERAL - Review of Systems Review Of Systems: Comprehensive ROS is negative, except as noted in HPI. ED EXAM, GENERAL - Physical Exam Exam: See Below Exam Limited By: No Limitations General Appearance: Alert, WD/WN, No Apparent Distress Ears: Normal External Exam, Normal Canal, Hearing Grossly Normal, Normal TMs Nose: Normal Inspection, Normal Mucosa, No Blood Throat/Mouth: Normal Inspection Head: Atraumatic, Normocephalic Neck: Normal Inspection, Supple, Non-Tender, Full Range of Motion Respiratory/Chest: No Respiratory Distress, Lungs Clear, Normal Breath Sounds, No Accessory Muscle Use, Chest Non-Tender Cardiovascular: Normal Peripheral Pulses GI/Abdominal: Normal Bowel Sounds, Soft, Non-Tender, No Organomegaly, No Distention, No Abnormal Bruit, No Mass (Female) Exam: Deferred Rectal (Female) Exam: Deferred Back Exam: Normal Inspection, Full Range of Motion, NT Extremities: Normal Inspection, Normal Range of Motion, Non-Tender, Normal Capillary Refill, No Pedal Edema Neurological: Alert, Oriented, CN II-XII Intact, Normal Cognition, Normal Gait, Normal Reflexes, No Motor/Sensory Deficits Psychiatric: Normal Affect, Normal Mood Skin Exam: Warm, Dry, Intact, Normal Color, No Rash Course - Re-Assessments/Exams Free Text/Narrative Re-Assessment/Exam: Pts headache has resolved after tylenol administration. The buring in her chest and nausea has also resolved. Pt feels safe to go home. 06/30/20 17:08 Departure - Departure Time of Disposition: 17:09 Disposition: Home, Self-Care 01 Condition: Good Clinical Impression: Nonspecific chest pain Vaccine reaction Qualifiers: Encounter type: initial encounter Qualified Code(s): T50.Z95A - Adverse effect of other vaccines and biological substances, initial encounter - Discharge Information *PRESCRIPTION DRUG MONITORING PROGRAM REVIEWED*: Not Applicable *COPY OF PRESCRIPTION DRUG MONITORING REPORT IN PATIENT ELLIOT: Not Applicable Instructions: Nonspecific Chest Pain, Adult, [id number] Forms: ED Department Discharge Additional Instructions: Follow up with your primary care facility about your anemia as we discussed. If any new symptoms or concerns develop return to the ER or contact your primary care physician. Sepsis Event Note (ED) - Evaluation Sepsis Screening Result: No Definite Risk <Tarik Whittaker - Last Filed: 06/30/20 17:17> Course - Vital Signs Last Recorded V/S: Last Vital Signs Temp 36.5 C 06/30/20 15:18 Pulse 72 06/30/20 15:18 Resp 18 06/30/20 15:18 BP 112/66 06/30/20 15:18 Pulse Ox 99 06/30/20 15:18 - Orders/Labs/Meds Orders: Active Orders 24 hr Category Date Time Status EKG 12 Lead [EKG Documentation Completion] [RC] STAT Care 06/30/20 15:43 Active Labs: Laboratory Tests 06/30/20 06/30/20 Range/Units 16:21 16:21 WBC 5.2 (5.0-10.0) 10^3/uL RBC 4.05 L (4.2-5.4) 10^6/uL Hgb 9.0 L (12.0-16.0) g/dL Hct 29.6 L (37.0-47.0) % MCV 73.1 L (80-100) fL MCH 22.2 L (27.0-34.0) pg MCHC 30.4 L (33.0-35.0) g/dL Plt Count 283 (150-450) 10^3/uL Neut % (Auto) 61.4 (42.2-75.2) % Lymph % (Auto) 28.8 (20.5-50.1) % [place] % (Auto) 9.6 H (2-8) % Eos % (Auto) 0.0 L (1.0-3.0) % Baso % (Auto) 0.2 (0.0-1.0) % Sodium 140 (136-145) mmol/L Potassium 3.5 (3.5-5.1) mmol/L Chloride 104 (98-107) mmol/L Carbon Dioxide 27 (21-32) mmol/L Anion Gap 12.5 (7-13) mEq/L BUN 10 (7-18) mg/dL Creatinine 0.51 L (0.55-1.02) mg/dL Est Cr Clr Drug Dosing 125.35 mL/min Estimated GFR (MDRD) > 60 BUN/Creatinine Ratio 19.6 (No establ ref range) Glucose 86 (74-99) mg/dL Calcium 8.7 (8.5-10.1) mg/dL Total Bilirubin 0.3 (0.2-1.0) mg/dL AST 14 L (15-37) U/L ALT 22 (14-59) U/L Alkaline Phosphatase 111 (46-116) U/L Troponin I < 0.017 (0.000-0.056) ng/mL Total Protein 7.7 (6.4-8.2) g/dL Albumin 3.4 (3.4-5.0) g/dL Globulin 4.3 Albumin/Globulin Ratio 0.8 Meds: Medications Discontinued Medications Generic Name Dose Route Start Last Admin Trade Name Freq PRN Reason Stop Dose Admin Acetaminophen 1,000 mg 06/30/20 15:28 06/30/20 16:37 Tylenol Extra Strength PO 06/30/20 15:29 1,000 mg ONETIME ONE Administration - Re-Assessments/Exams Free Text/Narrative Re-Assessment/Exam: I have examined the patient. I have discussed findings and treatment plan with the PA student. I agree with the assessment and plan in the following students note. Sepsis Event Note (ED) - Focused Exam Vital Signs: Vital Signs Temp Pulse Resp BP Pulse Ox 06/30/20 15:18 36.5 C 72 18 112/66 99 - My Orders Last 24 Hours: My Active Orders 06/30/20 15:43 EKG 12 Lead [EKG Documentation Completion] [RC] STAT - Assessment/Plan Last 24 Hours: My Active Orders 06/30/20 15:43 EKG 12 Lead [EKG Documentation Completion] [RC] STAT
[2020-06-30 16:50] LABS: ANION GAP 12.5 mEq/L (7-13); CHLORIDE,CL 104 mmol/L (98-107); SODIUM,NA 140 mmol/L (136-145)
== END 2020-06-30 17:35 | disposition home or self-care (01) ==
LOC: DL.ED 15:17
DX: R07.9 Chest pain, unspecified (principal); T88.1XXA Other complications following immunization, not elsewhere classified, initial encounter; R51.9 Headache, unspecified; R11.2 Nausea with vomiting, unspecified; J45.909 Unspecified asthma, uncomplicated; K21.9 Gastro-esophageal reflux disease without esophagitis; Z87.891 Personal history of nicotine dependence; Z86.16 Personal history of COVID-19; Z88.0 Allergy status to penicillin; Z88.8 Allergy status to other drugs, medicaments and biological substances; Z88.2 Allergy status to sulfonamides; Z88.1 Allergy status to other antibiotic agents; Z88.4 Allergy status to anesthetic agent; Z79.899 Other long term (current) drug therapy
CPT/HCPCS: 36415; 80053; 84484; 85025; 93005; 99283; 99285-25; A9270-GY

== ENCOUNTER 2021-06-02 18:02 | Emergency (ER) | payer OTHER ==
[2021-06-02] MEDS ORDERED: Benzonatate 100 MG Cap PO ONE ×2 (18:03→22:28)
[2021-06-02] MEDS ORDERED: Ondansetron 4 MG Tab.DIS PO ONE ×2 (18:03→22:28)
[2021-06-02] MEDS ORDERED: predniSONE 20 MG Tab PO ONE ×2 (18:03→22:28)
[2021-06-02 19:11] LABS: RESPIRATORY SYNCYTIAL VIR NAA NEGATIVE (NEGATIVE)
[2021-06-02 19:29] LABS: CORONAVIRUS COVID-19 NAA POSITIVE (NEGATIVE)
[2021-06-02] MEDS ORDERED: Acetaminophen 325 MG Tab PO ONE (19:53)
[2021-06-02 21:11] LABS: ANION GAP 14.3 mEq/L (7-13); CHLORIDE,CL 101 mmol/L (98-107); SODIUM,NA 133 mmol/L (136-145)
[2021-06-02] MEDS ORDERED: Potassium Chloride 10 MEQ Tab.ER PO ONE (22:28)
[2021-06-02] MEDS ORDERED: Acetaminophen/HYDROcodone 325-5 MG Tab PO ONE (22:44)
[2021-06-02] MEDS ORDERED: Ondansetron 4 MG Tab.DIS ONE (23:07)
[2021-06-02] MEDS ORDERED: Benzonatate 100 MG Cap ONE (23:07)
[2021-06-02] MEDS ORDERED: Albuterol 6.7 GM Inhaler INH ONE (23:08)
[2021-06-02] MEDS ORDERED: predniSONE 20 MG Tab ONE (23:08)
[2021-06-02 23:09] VITALS: BP 111/92; PULSE 87
== END 2021-06-02 23:28 | disposition home or self-care (01) ==
LOC: DL.ED 18:02
DX: U07.1 COVID-19 (principal); J45.21 Mild intermittent asthma with (acute) exacerbation; E87.6 Hypokalemia; K21.9 Gastro-esophageal reflux disease without esophagitis; Z72.0 Tobacco use; Z88.8 Allergy status to other drugs, medicaments and biological substances; Z88.1 Allergy status to other antibiotic agents; Z88.4 Allergy status to anesthetic agent; Z88.0 Allergy status to penicillin; Z88.2 Allergy status to sulfonamides; Z79.899 Other long term (current) drug therapy
CPT/HCPCS: 0241U; 36415; 71045; 80053; 81003; 82150; 83690; 83735; 85025; 85379; 85610; 86140; 99285; A9270; J7512

== ENCOUNTER 2021-08-30 18:58 | Emergency (ER) | payer OTHER ==
[2021-08-30] MEDS ORDERED: Ondansetron 4 MG Tab.DIS PO ONE (18:59)
[2021-08-30 20:45] VITALS: BP 121/59; PULSE 70
[2021-08-30 21:04] LABS: ANION GAP 12.6 mEq/L (7-13); CHLORIDE,CL 104 mmol/L (98-107); SODIUM,NA 140 mmol/L (136-145)
[2021-08-30] MEDS ORDERED: Sodium Chloride 0.9% 1,000 ML IV ONE (21:04)
[2021-08-30] MEDS ORDERED: Ondansetron 4 MG/2 ML SDV IVPUSH ONE (21:04)
[2021-08-30] MEDS ORDERED: Ketorolac 30 MG/ML SDV IVPUSH ONE (22:07)
[2021-08-30 22:25] LABS: CORONAVIRUS COVID-19 NAA NEGATIVE (NEGATIVE)
[2021-08-30] MEDS ORDERED: Ondansetron 4 MG Tab.DIS ONE (23:44)
== END 2021-08-31 00:07 | disposition home or self-care (01) ==
LOC: DL.ED 18:58
DX: R51.9 Headache, unspecified (principal); R11.2 Nausea with vomiting, unspecified; E03.9 Hypothyroidism, unspecified; Z86.16 Personal history of COVID-19; Z88.8 Allergy status to other drugs, medicaments and biological substances; Z88.1 Allergy status to other antibiotic agents; Z88.4 Allergy status to anesthetic agent; Z88.0 Allergy status to penicillin; Z79.899 Other long term (current) drug therapy; Z20.822 Contact with and (suspected) exposure to COVID-19
CPT/HCPCS: 0240U; 36415; 70450; 80053; 80307; 82150; 83605; 83690; 85025; 85610; 86140; 87040; 96374; 96375; 99284; 99284-25; A9270-GY; J1885; J2405; J7030

== ENCOUNTER 2021-09-28 12:41 | Inpatient (IN) | payer OTHER ==
[2021-09-28] MEDS ORDERED: methylPREDNISolone Sodium Succinate 125 MG/2 ML SDV IVPUSH ONE (13:30)
[2021-09-28 13:42] LABS: CORONAVIRUS COVID-19 NAA NEGATIVE (NEGATIVE)
[2021-09-28 13:45] LABS: ANION GAP 13.4 mEq/L (7-13); CHLORIDE,CL 105 mmol/L (98-107); SODIUM,NA 141 mmol/L (136-145)
[2021-09-28] MEDS: Albuterol/Ipratropium 3.0-0.5 MG/3 ML Neb Soln NEB ONE ×2 (14:08→14:38)
[2021-09-28] MEDS ORDERED: Codeine/guaiFENesin 10-100 MG/5 ML Syrup 5 ML Cup PO ONE (14:26)
[2021-09-28] MEDS ORDERED: Albuterol/Ipratropium 3.0-0.5 MG/3 ML Neb Soln NEB ONE (14:31)
[2021-09-28] MEDS ORDERED: Levofloxacin/Dextrose 5%-Water 500 MG in Premix Bag 1 BAG IV ONE (14:32)
[2021-09-28] MEDS ORDERED: Calcium Carbonate 500 MG Tab.Chew PO PRN (18:20)
[2021-09-28] MEDS ORDERED: HYDROmorphone 1 MG/ML Syringe SUBCUT PRN (18:22)
[2021-09-28] MEDS ORDERED: Docusate Sodium 100 MG Cap PO PRN (18:25)
[2021-09-28] MEDS ORDERED: Bisacodyl 5 MG Tab PO PRN (18:25)
[2021-09-28] MEDS ORDERED: Nitroglycerin 0.4 MG Tab.SL SL SCH (18:30)
[2021-09-28] MEDS ORDERED: Sodium Chloride 0.9% 10 ML Syringe FLUSH PRN (18:35)
[2021-09-28] MEDS: Sucralfate Suspension 1 GM/10 ML Cup PO SCH (18:40)
[2021-09-28] MEDS: Pantoprazole 40 MG Vial IVPUSH SCH (18:41)
[2021-09-28] MEDS: Albuterol/Ipratropium 3.0-0.5 MG/3 ML Neb Soln NEB PRN ×2 (18:45→20:53)
[2021-09-28] MEDS ORDERED: Nitroglycerin 0.4 MG Tab.SL SL PRN (18:45)
[2021-09-28] MEDS: methylPREDNISolone Sodium Succinate 40 MG/1 ML SDV IVPUSH SCH (19:39)
[2021-09-28] MEDS ORDERED: LORazepam 0.5 MG Tab PO PRN (19:59)
[2021-09-28] MEDS: Budesonide 0.5 MG/2 ML Neb Susp NEB SCH (20:53)
[2021-09-28] MEDS: Ondansetron 4 MG/2 ML SDV IVPUSH PRN (20:56)
[2021-09-28] MEDS: Acetaminophen 325 MG Tab PO PRN (21:35)
[2021-09-28] MEDS ORDERED: LORazepam 1 MG Tab PO ONE (23:56)
[2021-09-29] MEDS: Sucralfate Suspension 1 GM/10 ML Cup PO SCH ×4 (00:15→17:39)
[2021-09-29] MEDS: Acetaminophen 325 MG Tab PO PRN ×2 (02:30→21:03)
[2021-09-29] MEDS: Albuterol 0.083% 2.5 MG/3 ML Neb Soln NEB SCH ×4 (03:09→22:00)
[2021-09-29] MEDS: methylPREDNISolone Sodium Succinate 40 MG/1 ML SDV IVPUSH SCH ×3 (03:09→21:01)
[2021-09-29] MEDS: Pantoprazole 40 MG Vial IVPUSH SCH ×2 (05:17→17:36)
[2021-09-29] MEDS ORDERED: HYDROmorphone 1 MG/ML Syringe IVPUSH PRN (06:24)
[2021-09-29 06:43] LABS: ANION GAP 15.3 mEq/L (7-13); CHLORIDE,CL 105 mmol/L (98-107); SODIUM,NA 141 mmol/L (136-145)
[2021-09-29] MEDS: Codeine/guaiFENesin 10-100 MG/5 ML Syrup 5 ML Cup PO PRN ×2 (06:47→20:59)
[2021-09-29] MEDS ORDERED: Albuterol/Ipratropium 3.0-0.5 MG/3 ML Neb Soln ONE (08:22)
[2021-09-29] MEDS: Ondansetron 4 MG/2 ML SDV IVPUSH PRN ×2 (08:41→17:48)
[2021-09-29] MEDS: Budesonide 0.5 MG/2 ML Neb Susp NEB SCH ×2 (08:44→22:00)
[2021-09-29] MEDS: Albuterol/Ipratropium 3.0-0.5 MG/3 ML Neb Soln NEB PRN (08:44)
[2021-09-29] MEDS: Levofloxacin/Dextrose 5%-Water 750 MG in Premix Bag 1 BAG IV SCH (08:46)
[2021-09-29] MEDS: Enoxaparin 40 MG/0.4 ML Syringe SUBCUT SCH (08:50)
[2021-09-29] MEDS: Metoclopramide 10 MG/2 ML SDV IVPUSH PRN ×2 (10:50→20:59)
[2021-09-29] MEDS: Sodium Chloride 0.9% 1,000 ML IV SCH (10:55)
[2021-09-30] MEDS: Sucralfate Suspension 1 GM/10 ML Cup PO SCH ×2 (00:13→05:36)
[2021-09-30] MEDS: Albuterol 0.083% 2.5 MG/3 ML Neb Soln NEB SCH ×2 (01:51→07:30)
[2021-09-30] MEDS: methylPREDNISolone Sodium Succinate 40 MG/1 ML SDV IVPUSH SCH (03:49)
[2021-09-30] MEDS: Acetaminophen 325 MG Tab PO PRN (03:49)
[2021-09-30] MEDS: Sodium Chloride 0.9% 1,000 ML IV SCH (03:49)
[2021-09-30] MEDS: Pantoprazole 40 MG Vial IVPUSH SCH (05:35)
[2021-09-30 06:21] VITALS: PULSE 67
[2021-09-30] MEDS: Budesonide 0.5 MG/2 ML Neb Susp NEB SCH (07:30)
[2021-09-30 07:32] VITALS: BP 94/37
[2021-09-30] MEDS: Levofloxacin/Dextrose 5%-Water 750 MG in Premix Bag 1 BAG IV SCH (08:04)
[2021-09-30] MEDS: Enoxaparin 40 MG/0.4 ML Syringe SUBCUT SCH (08:08)
== END 2021-09-30 12:13 | disposition home or self-care (01) | DRG 202 ==
LOC: DL.ED 12:41 → DL.MS 15:57
PROVIDERS: ADMIT Internal Medicine; ATTEND Internal Medicine
DX: J45.901 Unspecified asthma with (acute) exacerbation (principal); E87.2 Acidosis; K29.70 Gastritis, unspecified, without bleeding; T38.0X5A Adverse effect of glucocorticoids and synthetic analogues, initial encounter; Z20.822 Contact with and (suspected) exposure to COVID-19; Z86.16 Personal history of COVID-19; E61.1 Iron deficiency; K52.9 Noninfective gastroenteritis and colitis, unspecified; K21.9 Gastro-esophageal reflux disease without esophagitis; H54.7 Unspecified visual loss; F41.0 Panic disorder [episodic paroxysmal anxiety]; E05.90 Thyrotoxicosis, unspecified without thyrotoxic crisis or storm; D64.9 Anemia, unspecified; R79.89 Other specified abnormal findings of blood chemistry; Z87.891 Personal history of nicotine dependence; Z79.899 Other long term (current) drug therapy; Z88.2 Allergy status to sulfonamides; Z88.1 Allergy status to other antibiotic agents; Z88.0 Allergy status to penicillin; Z88.8 Allergy status to other drugs, medicaments and biological substances; Z90.49 Acquired absence of other specified parts of digestive tract
CPT/HCPCS: 0240U; 36415; 71045; 80053; 82150; 82728; 83540; 83550; 83605; 83690; 84484; 85025; 87040; 93005; 93010; 94640; 96365; 96375; 99284; 99285-25; A9270-GY; C9113; J1170; J1650; J1956; J2405; J2765; J2920; J2930; J7030; J7613-GY; J7620-GY

== ENCOUNTER 2023-04-26 02:53 | Emergency (ER) | payer OTHER ==
[2023-04-26 06:21] LABS: BASOPHILS PERCENT AUTO 0.1 % (0.0-1.0); HEMATOCRIT 31.2 % (37.0-47.0); HEMOGLOBIN 9.3 g/dL (12.0-16.0); MEAN CORPUSCULAR HEMOGLOBIN 23.6 pg (27.0-34.0); MEAN CORPUSCULAR HGB CONC 29.8 g/dL (33.0-35.0); MEAN CORPUSCULAR VOLUME 79.2 fL (80-100); MONOCYTES PERCENT AUTO 7.9 % (2-8); PLATELET COUNT,PLT 226 10^3/uL (150-450); RED BLOOD CELL COUNT 3.94 10^6/uL (4.2-5.4)
[2023-04-26 06:22] LABS: ALANINE AMINOTRANSFERASE,ALT 29 U/L (14-59); ALBUMIN 3.1 g/dL (3.4-5.0); ALKALINE PHOSPHATASE 135 U/L (46-116); ANION GAP 11.6 mEq/L (7-13); ASPARTATE AMNIOTRANSFERASE,AST 17 U/L (15-37); BILIRUBIN TOTAL 0.5 mg/dL (0.2-1.0); BLOOD UREA NITROGEN,BUN 11 mg/dL (7-18); BUN/CREATININE RATIO 16.4 (No establ ref range); C-REACTIVE PROTEIN 2.19 ng/dL (<=0.50); CALCIUM 8.4 mg/dL (8.5-10.1); CARBON DIOXIDE,CO2 27 mmol/L (21-32); CHLORIDE,CL 106 mmol/L (98-107); CREATININE 0.67 mg/dL (0.55-1.02); GLUCOSE RANDOM 102 mg/dL (70-99); LIPASE 29 U/L (16-77); POTASSIUM,K 3.6 mmol/L (3.5-5.1); PROTEIN TOTAL,TP 7.3 g/dL (6.4-8.2); SODIUM,NA 141 mmol/L (136-145)
[2023-04-26 06:23] LABS: A/G RATIO 0.74; ESTIMATED GFR 108 mL/min (>=60); ETHANOL BLOOD MEDICAL < 3 mg/dL (0)
[2023-04-26 06:28] LABS: INR 0.9 (0.9-1.2); PROTHROMBIN TIME 9.3 SEC (9.0-12.0)
[2023-04-26 06:29] LABS: D-DIMER QUANTITATIVE < 100 ng/mL (0-400)
[2023-04-26 06:42] LABS: B-TYPE NATRIURETIC PEPTIDE,BNP 21 pg/ml (0-100)
[2023-04-26 07:02] LABS: CORONAVIRUS COVID-19 NAA NEGATIVE (NEGATIVE); INFLUENZA A NAA NEGATIVE (NEGATIVE); INFLUENZA B NAA NEGATIVE (NEGATIVE); RESPIRATORY SYNCYTIAL VIR NAA NEGATIVE (NEGATIVE)
[2023-04-26 07:16] VITALS: BP 101/61; PULSE 55
== END 2023-04-26 07:15 | disposition home or self-care (01) ==
LOC: DL.ED 02:53
DX: R07.89 Other chest pain (principal); Z87.891 Personal history of nicotine dependence
CPT/HCPCS: 0241U; 36415; 71045; 80053; 80307; 83690; 83880; 84484; 85025; 85379; 85610; 85730; 86140; 99285